=== PATIENT | female | born 1950 | race Caucasian/White ===

== ENCOUNTER 2019-08-17 11:15 | Outpatient (CLI) | payer MEDICARE, SELFPAY ==
--- NOTE | ~2019-08-17 | XR_ITS ---
EXAMINATION: XR knee RT 3V DATE: 08/17/2019 11:41 INDICATION: Right knee pain TECHNIQUE: Three views of the right knee were obtained. COMPARISON: None. FINDINGS: Alignment is normal. No fracture or osteochondral lesion. There is mild tricompartmental os teoarthritis characterized by tiny marginal osteophytes. No joint effusion/synovitis. Soft tissues a re unremarkable. IMPRESSION: 1. No acute osseous abnormality. Reviewed, dictated and finalized at location A.
== END 2019-08-17 11:16 | disposition home or self-care (01) ==
PROVIDERS: PCP Family Medicine; Visit Provider Family Medicine
DX: M25.561 Pain in right knee (principal)
CPT/HCPCS: 73562

== ENCOUNTER 2019-12-20 06:51 | Outpatient (NON) | payer MEDICARE, SELFPAY ==
[2019-12-20 18:18] LABS: SARS-CoV-2 RNA PCR Negative
== END 2019-12-20 06:52 ==
LOC: ANHCOVIDDT 06:52
PROVIDERS: PCP Family Medicine; Visit Provider Physician Assistant
DX: Z20.828 Contact with and (suspected) exposure to other viral communicable diseases (principal); R09.89 Other specified symptoms and signs involving the circulatory and respiratory systems
CPT/HCPCS: 87635; C9803; U0003

== ENCOUNTER 2020-08-09 07:18 | Outpatient (CLI) | payer MEDICARE, SELFPAY ==
--- NOTE | ~2020-08-09 | CT_ITS ---
EXAMINATION: CT abdomen pelvis wo con DATE: 08/09/2020 07:35 INDICATION: Abdomen pain. TECHNIQUE: Computed tomography (CT) of the abdomen and pelvis was performed without intravenous contr ast. The dose-length product was 555.40 mGy-cm. Automated exposure control and iterative reconstructi on technique were employed. COMPARISON: CT dated 11/06/2016. FINDINGS: Lung bases are unremarkable. Heart size normal. The liver, spleen, pancreas, adrenal glands and kidneys are unremarkable. Gallbladder is present. There is mild atherosclerosis of the aorta wit hout aneurysm. No abnormal pelvic masses or fluid collections. No obstruction. No free air or free fl uid. Moderate lumbar spondylosis. IMPRESSION: 1. No acute abdominal abnormality. Reviewed, dictated and finalized at location A.
== END 2020-08-09 07:19 | disposition home or self-care (01) ==
LOC: ANHIMG 07:20
PROVIDERS: PCP Family Medicine; Visit Provider Family Medicine
DX: R10.9 Unspecified abdominal pain (principal)
CPT/HCPCS: 74176

== ENCOUNTER 2020-09-17 08:41 | Outpatient (CLI) | payer MEDICARE, SELFPAY ==
--- NOTE | ~2020-09-17 | DEXA_ITS ---
Bone Density Report Name: Khadra Mclean Age: 69 Sex: Female Ethnicity: White Date of : 1950 Indication: postmenopausal; prior fracture; asthma or emphysema; hysterectomy; Referring Provider: Jeremy Oro Study: Bone densitometry was performed. Exam Date: September 17, 2020 Accession number: [id number] Bone Density: Region BMD T-score Z-score Classification AP Spine (L1, L2) 0.891 -0.8 1.0 Normal Femoral Neck (Left) 0.683 -1.5 0.2 Osteopenia Total Hip (Left) 0.854 -0.7 0.7 Normal Total Hip Bilateral Avg 0.839 -0.8 0.6 Normal Femoral Neck (Right) 0.677 -1.5 0.1 Osteopenia Total Hip (Right) 0.824 -1.0 0.4 Normal World Health Organization criteria for BMD impression classify patients as: Normal (T-score at or above -1.0), Osteopenia (T-score between -1.0 and -2.5), or Osteoporosis (T-score at or below -2.5). 10-year Fracture Risk(1): Major Osteoporotic Fracture 15% Hip Fracture 1.7% Reported Risk Factors: [place] (), Neck BMD=0.677, BMI=34.2, previous fracture (1) FRAX(R) Version 3.08. Fracture probability calculated for an untreated patient. Fracture probability may be lower if the patient has received treatment. Clinical Information Provided by Patient: Has had a low trauma fracture Has the following medical conditions: Asthma or Emphysema, Hysterectomy Patient maximum height was 60 Menopause Age: 47 No regular weight bearing exercise Drinks caffeinated beverages Onset of menses at age 18 Number of children 2 Impression: The patient has low bone mass, based on the Left Femoral Neck T-score. The patient has an estimated ten-year risk of hip fracture of 1.7% and an estimated ten-year risk of major fracture of 15%, based on the WHO FRAX algorithm. The patient has risk factors, including: previous fracture. Discussion: BONE DENSITY IS LOW AT ONE OR MORE SKELETAL SITES. This patient's lowest T-score is low at one or more skeletal sites. It meets the World Health Organization's (WHO) criteria for ?low bone mass? (T-score between -1.0 and -2.5). The patient's 10-year risk of fracture as calculated by FRAX is less than the threshold where pharmacological therapy is recommended by the National Osteoporosis Foundation (NOF). However, all treatment decisions require clinical judgment and consideration of individual patient factors, including patient preferences, comorbidities, previous drug use, risk factors not captured in the FRAX model (e.g., frailty, falls, vitamin D deficiency, increased bone turnover, interval significant decline in bone density) and possible under or overestimation of fracture risk by FRAX. The patient should follow a healthful lifestyle (good nutrition with adequate calcium and vitamin D, and appropriate weight-bearing exercise). Follow-Up: Consider repeating this micah
--- NOTE | ~2020-09-17 | MM_ITS ---
EXAMINATION: MM screening rosanna BI w judie HISTORY: Screening mammogram TECHNIQUE: Craniocaudal and mediolateral oblique 3-D tomosynthesis images were obtained and synthetic 2-D images were generated. CAD analysis was submitted and interpreted. COMPARISON: 12/13/2014 bilateral digital screening mammogram BREAST PARENCHYMAL COMPOSITION: There are scattered areas of fibroglandular density. FINDINGS: Stable circumscribed low-density benign probable intramammary lymph node in the posterior o uter mid right breast. There is no evidence of suspicious mass, calcification, or architectural disto rtion to suggest malignancy in either breast. There has been no suspicious interval change. IMPRESSION: 1. No mammographic evidence of malignancy. 2. Recommend routine screening mammography in one year. BI-RADS Category 2: Benign finding(s). Reviewed, dictated and finalized at location A.
== END 2020-09-17 08:42 | disposition home or self-care (01) ==
PROVIDERS: PCP Family Medicine; Visit Provider Family Medicine
DX: Z12.31 Encounter for screening mammogram for malignant neoplasm of breast (principal); Z78.0 Asymptomatic menopausal state; M85.851 Other specified disorders of bone density and structure, right thigh; M85.852 Other specified disorders of bone density and structure, left thigh
CPT/HCPCS: 77063; 77067; 77080

== ENCOUNTER 2021-05-06 10:23 | Outpatient (CLI) | payer MEDICARE, SELFPAY ==
--- NOTE | ~2021-05-06 | XR_ITS ---
EXAMINATION: XR lumbar spine 2-3V DATE: 05/06/2021 10:37 INDICATION: Dorsalgia, unspecified, right-sided. TECHNIQUE: 3 views of lumbar spine were obtained. COMPARISON: Lumbar spine radiographs 03/23/16 FINDINGS: There is 12 degrees dextroscoliosis of lumbar spine. There is mild chronic anterior wedging of L1 vertebral body. There is mildly decreased disc height at L1-L2 and L2-L3, severely decreased d isc height at L3-L4, and mildly decreased disc height at L4-L5 and L5-S1 with endplate remodeling. Th ere is severe facet joint osteoarthritis in lower lumbar spine. IMPRESSION: 1. Severe lumbar spondylosis, worsened from 03/23/2016. 2. Lumbar dextroscoliosis. Reviewed, dictated and finalized at location A.
--- NOTE | ~2021-05-06 | XR_ITS ---
EXAMINATION: XR thoracic spine 3V DATE: 05/06/2021 10:37 INDICATION: Dorsalgia, unspecified, right side. TECHNIQUE: 3 views of thoracic spine were obtained. COMPARISON: Chest CT 11/30/2018 FINDINGS: There is 7 degrees levocurvature of lower thoracic spine and 6 degrees dextrocurvature of u pper thoracic spine. There is mild chronic anterior wedging of T5 vertebral body. There is there is m ildly decreased disc height at most levels. There is moderately decreased disc height at T5-T6. There are endplate osteophytes at most levels. IMPRESSION: 1. Moderate thoracic spondylosis. Reviewed, dictated and finalized at location A.
== END 2021-05-06 10:24 | disposition home or self-care (01) ==
LOC: ANHIMG 10:24
PROVIDERS: PCP Family Medicine; Visit Provider Family Medicine
DX: M54.9 Dorsalgia, unspecified (principal); M47.814 Spondylosis without myelopathy or radiculopathy, thoracic region; M47.816 Spondylosis without myelopathy or radiculopathy, lumbar region; M41.86 Other forms of scoliosis, lumbar region
CPT/HCPCS: 72072; 72100

== ENCOUNTER 2021-07-01 08:21 | Outpatient (CLI) | payer MEDICARE, SELFPAY ==
[2021-07-01 09:07] LABS: Hemoglobin A1C 5.5 % (<5.7)
[2021-07-01 09:10] LABS: Complement C3 139 mg/dL (88-165)
[2021-07-01 09:44] LABS: Vitamin D 25 Hydroxy 36.1 ng/mL
[2021-07-03 12:28] LABS: SM Antibody <1.0; SM/RNP Antibody <1.0
[2021-07-03 12:29] LABS: SS-A <1.0; SS-B <1.0
[2021-07-03 21:19] LABS: Anti Cyclic Citrullinated Pept <16 Units (<20)
== END 2021-07-01 08:22 | disposition home or self-care (01) ==
PROVIDERS: PCP Family Medicine; Referring Provider Internal Medicine; Visit Provider Physician Assistant
DX: R73.01 Impaired fasting glucose (principal); R79.89 Other specified abnormal findings of blood chemistry; E03.8 Other specified hypothyroidism; M19.90 Unspecified osteoarthritis, unspecified site; R76.8 Other specified abnormal immunological findings in serum; Z51.81 Encounter for therapeutic drug level monitoring; Z79.899 Other long term (current) drug therapy
CPT/HCPCS: 36415; 82306; 83036; 84443; 85613; 85730; 86160; 86200; 86225; 86235

== ENCOUNTER 2021-07-02 07:55 | Outpatient (CLI) | payer MEDICARE, SELFPAY ==
[2021-07-07 07:41] LABS: Lupus dRVVT 1:1 Mix Interpreta Not Indicated; Lupus dRVVT Screen 40 sec (<=45); PTT-LA Screen 34 sec (<=40)
== END 2021-07-02 07:56 | disposition home or self-care (01) ==
PROVIDERS: PCP Family Medicine; Referring Provider Internal Medicine; Visit Provider Physician Assistant
DX: M19.90 Unspecified osteoarthritis, unspecified site (principal); R76.8 Other specified abnormal immunological findings in serum; R53.83 Other fatigue; R79.89 Other specified abnormal findings of blood chemistry
CPT/HCPCS: 36415; 85613; 85730

== ENCOUNTER 2021-08-26 14:42 | Outpatient (CLI) | payer MEDICARE, SELFPAY ==
--- NOTE | ~2021-08-26 | XR_ITS ---
XR ribs RT 2V w CXR 2V DATE: 08/26/2021 15:08 INDICATION: Right lower lateral rib pain TECHNIQUE: PA and lateral views. 4 right rib cage views COMPARISON: 12/10/2018 CT chest 04/30/2017 two-view chest FINDINGS: Normal heart size. No hilar or mediastinal enlargement. No pulmonary infiltrate or consolid ation, pleural effusion or pulmonary vascular congestion or pneumothorax. There is osteopenia. Mild thoracic scoliosis and degenerative spurring. Mild dextroscoliosis and mult ilevel degenerative disc disease of the lumbar spine. No right rib fracture or bone destruction is detected. IMPRESSION: No right rib fractures evident Osteopenia Scoliosis and degenerative change of the thoracic and lumbar spine No active cardiopulmonary disease Reviewed, dictated and finalized at location A.
== END 2021-08-26 14:43 | disposition home or self-care (01) ==
PROVIDERS: PCP Family Medicine; Visit Provider Physician Assistant
DX: M54.9 Dorsalgia, unspecified (principal); R07.81 Pleurodynia; M85.88 Other specified disorders of bone density and structure, other site; M41.86 Other forms of scoliosis, lumbar region
CPT/HCPCS: 71046; 71100

== ENCOUNTER 2022-08-10 01:23 | Day surgery (SDC) | payer MEDICARE, SELFPAY ==
[2022-07-31 08:59] VITALS: BMI 30.7
--- NOTE | 2022-08-07 15:27 | PM.HPGS ---
History of Present Illness History of Present Illness Consent: Risks, benefits, and alternatives have been discussed and questions answered. Patient agrees to proceed with procedure. Chief complaint: hx of colon polyps,neoplasm screening, Narrative: Khadra Mclean is a 71 year old female Referred for colon cancer screening. She has a history of polyps.She suffers from chronic constipation. A recent CT scan to investigate pelvic pain revealed a possible abnormality in the transverse colon. Review of Systems Review of Systems: All systems reviewed & are unremarkable except as noted in HPI and below PMFSH Past Medical History Medical History FITZ positive (~12/2020) Asthma Asthma exacerbation Degenerative joint disease (DJD) of lumbar spine Depression Fatigue Fatigue HLD (hyperlipidemia) Lateral abdominal pain Left-sided low back pain without sciatica Pneumonia of right lower lobe due to infectious organism TSH elevation Surgical History Surgical History H/O melanoma in situ History of incisional hernia repair Family History Family History Mother Family history of chronic obstructive pulmonary disease Other Cerebrovascular accident Family history of allergic disorder Family history of coronary artery disease Family history of malignant neoplasm Hypertension Social History Social History Smoking status: Never smoker Second hand tobacco smoke exposure: Yes Alcohol intake: current Alcohol use details: 3 drinks per month Substance use: never Substance use type: does not use Living arrangements: alone Occupation/Education: retired Gender identity (if verbalized by the patient): Female Sexual Orientation (if Verbalized by the Patient): Straight or Heterosexual Spiritual care concerns: No Meds Home Medications and Allergies Home Medications Medication Instructions Recorded Confirmed Type albuterol sulfate 90 mcg/actuation 1 - 2 puff inhalation Q4-6H PRN 12/09/20 08/10/22 Rx aerosol inhaler (Ventolin HFA) shortness of breath or wheezing #8.5 grams atorvastatin 10 mg tablet (Lipitor) 10 mg PO DAILY #90 tabs 04/28/21 08/10/22 Rx montelukast 10 mg tablet 10 mg PO DAILY #90 tabs 04/28/21 08/10/22 Rx inhalational spacing device #10 ea 09/01/21 07/31/22 Rx (Aerochamber MV spacer) pantoprazole 40 mg tablet,delayed 40 mg PO QAM #30 tabs 03/16/22 08/10/22 Rx release hydrochlorothiazide 25 mg tablet 25 mg PO DAILY #90 tabs 05/06/22 08/10/22 Rx trazodone 300 mg tablet 300 mg PO .qhs #90 tabs 06/11/22 08/10/22 Rx azelastine 137 mcg (0.1 %) nasal 1 spray intranasal Q12H PRN 07/31/22 08/10/22 History spray aerosol Allergy Symptoms citalopram 40 mg tablet 60 mg PO DAILY 07/31/22 08/10/22 History mometasone-formoterol HFA 100 2 puff inhalation Q12H PRN Dyspnea 07/31/22 08/10/22 History mcg-5 mcg/actuation aerosol inhaler (Dulera) Allergies Allergy/AdvReac Type Severity Reaction Status Date / Time No Known Allergies Allergy Verified 08/10/22 07:06 Exam Const: General: alert Orientation/consciousness: patient oriented x3 Resp: Auscultation: clear to auscultation bilaterally Cardio: Rhythm: regular rhythm GI: GI Palp: Yes Soft to palpation and No Tenderness to palpation present (GI) Neuro: General: patient oriented x3 Assessment and Plan Assessment and plan (1) Colon cancer screening: Code(s): Z12.11 - Encounter for screening for malignant neoplasm of colon Status: Acute Assessment and Plan: Colonoscopy with possible biopsy or polypectomy or cautery or injection of substances.
[2022-08-10 07:08] VITALS: BP 131/57; PULSE 65; RESP 16; TEMP 36.1; O2SAT 100
[2022-08-10] MEDS: LACTATED RINGERS 1,000 ML 150 ML IV CONT (07:14)
--- NOTE | 2022-08-10 08:10 | WPDANESEPPF ---
Anes - Initial Pre Proc Eval Procedure: Operation Date: 08/10/22 08:30 Proposed Procedures p Colonoscopy - Daniel Nelson MD Date/Time: 08/10/22 08:10 Surgeon: Daniel Nelson MD Pre Op Diagnosis: hx of colon polyps,neoplasm screening, Patient Data Age: 71 Gender: F Height: 1.52 m Weight: 71.8 kg Last Vital Signs Temp 97 F L 08/10/22 07:08 Pulse 65 08/10/22 07:08 Resp 16 08/10/22 07:08 BP 131/57 L 08/10/22 07:08 Pulse Ox 100 08/10/22 07:08 O2 Del Method Room Air 08/10/22 07:08 Allergies Allergy/AdvReac Type Severity Reaction Status Date / Time No Known Allergies Allergy Verified 08/10/22 07:06 Home Medications Medication Instructions Recorded Confirmed Type albuterol sulfate 90 mcg/actuation 1 - 2 puff inhalation Q4-6H PRN 12/09/20 08/10/22 Rx aerosol inhaler (Ventolin HFA) shortness of breath or wheezing #8.5 grams atorvastatin 10 mg tablet (Lipitor) 10 mg PO DAILY #90 tabs 04/28/21 08/10/22 Rx montelukast 10 mg tablet 10 mg PO DAILY #90 tabs 04/28/21 08/10/22 Rx inhalational spacing device #10 ea 09/01/21 07/31/22 Rx (Aerochamber MV spacer) pantoprazole 40 mg tablet,delayed 40 mg PO QAM #30 tabs 03/16/22 08/10/22 Rx release hydrochlorothiazide 25 mg tablet 25 mg PO DAILY #90 tabs 05/06/22 08/10/22 Rx trazodone 300 mg tablet 300 mg PO .qhs #90 tabs 06/11/22 08/10/22 Rx azelastine 137 mcg (0.1 %) nasal 1 spray intranasal Q12H PRN 07/31/22 08/10/22 History spray aerosol Allergy Symptoms citalopram 40 mg tablet 60 mg PO DAILY 07/31/22 08/10/22 History mometasone-formoterol HFA 100 2 puff inhalation Q12H PRN Dyspnea 07/31/22 08/10/22 History mcg-5 mcg/actuation aerosol inhaler (Dulera) Patient hx anesthesia problems: none Family hx anesthesia problems: none Results Review: All pre-operative results and documents have been reviewed as part of the pre-operative evaluation. [facility] Past Medical History Medical History FITZ positive (~12/2020) Asthma Asthma exacerbation Degenerative joint disease (DJD) of lumbar spine Depression Fatigue Fatigue HLD (hyperlipidemia) Lateral abdominal pain Left-sided low back pain without sciatica Pneumonia of right lower lobe due to infectious organism TSH elevation Surgical History Surgical History H/O melanoma in situ History of incisional hernia repair Family History Family History Mother Family history of chronic obstructive pulmonary disease Other Cerebrovascular accident Family history of allergic disorder Family history of coronary artery disease Family history of malignant neoplasm Hypertension Social History Social History Smoking status: Never smoker Second hand tobacco smoke exposure: Yes Alcohol intake: current Alcohol use details: 3 drinks per month Substance use: never Substance use type: does not use Living arrangements: alone Occupation/Education: retired Gender identity (if verbalized by the patient): Female Sexual Orientation (if Verbalized by the Patient): Straight or Heterosexual Spiritual care concerns: No Anes - Eval Final PreProcedure Day of Procedure 08/10/22 08:10 Patient weight: obese Heart: regular rate and rhythm Lungs: clear to auscultation Airway: Mallampati scale class II Neurological: alert and oriented Last oral intake: >/= 8 hours ASA classification: III Emergent: no Anesthetic plan: proceed Anesthesia type and monitoring: general GIVS and standard monitoring Results Review: All pre-operative results and documents have been reviewed as part of the pre-operative evaluation. Informed Consent: The patient's anesthetic plan and its attendant risks and benefits were discussed with the patient/family/POA. Questions were
[2022-08-10 08:46] VITALS: BP 104/57; PULSE 58; RESP 15; O2SAT 96
[2022-08-10 08:56] VITALS: BP 113/56; PULSE 58; RESP 18; O2SAT 98
[2022-08-10 09:12] VITALS: BP 115/50; PULSE 60; RESP 18; O2SAT 98
== END 2022-08-10 09:19 | disposition home or self-care (01) ==
PROVIDERS: PCP Family Medicine; Visit Provider Internal Medicine Gastroenterology
PROC: 0DJD8ZZ Inspection of Lower Intestinal Tract, Via Natural or Artificial Opening Endoscopic (ICD-10-PCS; CPT 45378; principal; 2022-08-10 08:30)
DX: Z12.11 Encounter for screening for malignant neoplasm of colon (principal); K64.8 Other hemorrhoids; K59.09 Other constipation; Z86.010 Personal history of colon polyps; J45.909 Unspecified asthma, uncomplicated; F32.A Depression, unspecified; E78.5 Hyperlipidemia, unspecified; Z79.51 Long term (current) use of inhaled steroids; E66.9 Obesity, unspecified; Z68.30 Body mass index [BMI] 30.0-30.9, adult
CPT/HCPCS: G0105; J2704; J7120

== ENCOUNTER 2023-04-22 07:52 | Outpatient (CLI) | payer MEDICARE, SELFPAY ==
--- NOTE | ~2023-04-22 | MM_ITS ---
EXAMINATION: MM screening rosanna BI w judie HISTORY: Screening TECHNIQUE: Craniocaudal and mediolateral oblique 3-D tomosynthesis images were obtained and synthetic 2-D images were generated. CAD analysis was submitted and interpreted. COMPARISON: Comparison to multiple prior studies sequentially, with oldest reviewed study dated 11/23. BREAST PARENCHYMAL COMPOSITION: Not dense: There are scattered areas of fibroglandular density. FINDINGS: There is no evidence of suspicious mass, calcification, or architectural distortion to sugg est malignancy in either breast. There has been no suspicious interval change. IMPRESSION: 1. No mammographic evidence of malignancy. 2. Recommend routine screening mammography in one year. BI-RADS Category 1: Negative Reviewed, dictated and finalized at location A. D [employer]
--- NOTE | ~2023-04-22 | DEXA_ITS ---
Bone Density Report Name: STEPHANIE QUINTERO Age: 72 Sex: Female Ethnicity: White Date of : 1950 Indication: postmenopausal; screening for osteoporosis; height loss; asthma or emphysema; hysterectomy; Referring Provider: WENCESLAO HERRING Study: Bone densitometry was performed. Exam Date: April 22, 2023 Accession number: [id number] Bone Density: Region BMD T-score Z-score Classification AP Spine(L1, L2) 0.888 -0.8 1.2 Normal Femoral Neck (Left) 0.688 -1.5 0.4 Osteopenia Total Hip (Left) 0.908 -0.3 1.3 Normal Femoral Neck (Right) 0.679 -1.5 0.3 Osteopenia Total Hip (Right) 0.884 -0.5 1.1 Normal Total Hip Mean 0.896 -0.4 1.2 Normal World Health Organization criteria for BMD impression classify patients as: Normal (T-score at or above -1.0), Osteopenia (T-score between -1.0 and -2.5), or Osteoporosis (T-score at or below -2.5). 10-year Fracture Risk(1): Major Osteoporotic Fracture 9.8% Hip Fracture 1.4% Reported Risk Factors: [place] (), Neck BMD=0.679, BMI=30.1 (1) FRAX(R) Version 3.08. Fracture probability calculated for an untreated patient. Fracture probability may be lower if the patient has received treatment. Previous Exams: Region Exam Age BMD T-score BMD Change BMD Change Date g/cm2 vs Baseline vs Previous AP Spine (L1-L2) 04/22/2023 72 0.888 -0.8 -0.003 (-0.3%) -0.003 (-0.3%) 09/17/2020 69 0.891 -0.8 Total Hip(Left) 04/22/2023 72 0.908 -0.3 0.055 (6.4%)* 0.055 (6.4%)* 09/17/2020 69 0.854 -0.7 Total Hip(Right) 04/22/2023 72 0.884 -0.5 0.060 (7.3%)* 0.060 (7.3%)* 09/17/2020 69 0.824 -1.0 *Denotes significance at 95% confidence level, LSC for AP Spine = 0.022 g/cm2, LSC for Total Hip = 0.027 g/cm2 Clinical Information Provided by Patient: Has the following medical conditions: Asthma or Emphysema, Hysterectomy, complete hysto Patient maximum height was 61 Menopause Age: 54 No regular weight bearing exercise Does not regularly consume dairy products Drinks caffeinated beverages Onset of menses at age 17 Number of children 2 Impression: The patient has low bone mass, based on the Left Femoral Neck T-score. The patient has an estimated ten-year risk of hip fracture of 1.4% and an estimated ten-year risk of major fracture of 9.8%, based on the WHO FRAX algorithm. No significant bone loss was observed. Discussion: BONE DENSITY IS LOW AT ONE OR MORE SKELETAL SITES. Th
== END 2023-04-22 07:53 | disposition home or self-care (01) ==
PROVIDERS: PCP Family Medicine; Visit Provider Physician Assistant
DX: Z12.31 Encounter for screening mammogram for malignant neoplasm of breast (principal); Z78.0 Asymptomatic menopausal state; M85.89 Other specified disorders of bone density and structure, multiple sites
CPT/HCPCS: 77063; 77067; 77080

== ENCOUNTER 2024-05-23 10:21 | Outpatient (CLI) | payer MEDICARE, SELFPAY ==
--- NOTE | ~2024-05-23 | XR_ITS ---
XR shoulder LT min 2V 05/23/2024 10:42 Indication: Left shoulder pain Procedure: 4 views left shoulder Comparison: No prior studies for comparison. Findings: There is mild polyarticular osteoarthritis. No fracture or traumatic malalignment. There is anatomic alignment. No soft tissue abnormality. Impression: 1: Mild polyarticular osteoarthritis. Reviewed, dictated and finalized at location A. Impression: 1: Mild polyarticular osteoarthritis.
--- OUTSIDE RECORDS SUMMARY | 2024-05-23 11:26 | XMS_ITS | Data Portability ---
Author Organization [facility], Main Office Address [address] [facility] [address] [address] Assessment No assessment recorded. Plan of Treatment Reminders Order Date Submit Date Provider Last Modified By Organization Details Last Modified Time Details Appointments None record ed. Lab None record ed. Referral None record ed. Procedures biopsy , skin (PROC) 024 06/18/19 24 [email or web address] Not available 4 09:56:06 biopsy , skin (PROC) 024 06/18/19 24 [email or web address] Not available 4 09:56:06 Surgeries None record ed. Imaging None record ed. Medication Orders None record ed. Patient TargetsNo targets recorded. Patient Instructions Encounter Date Encounter Id Patient Instructions Last Modified By Organization Details Last Modified Time 06/18/2023 [id number] Informed consent . betadine prep. 1% lidocaine with epinephrine. Shave biopsy from: nasal bridge, right of mid r lower lateral abdomen AlCL3 or cautery hemostasis. Aquaphor, bandage and wound care given. Will call pt with path. Cryo to left shoulder wart. [email or web address] Not available 06/18/2023 09:55:04 Reason for Referral None Reported. 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 578685147 Active 2022 Sher Hickman MD [address] [facility] [address], [place], [address], [facility] 3 10:08:07 Inflamed seborrheic keratosis 115455796 Active 2022 Sher Hickman MD [address] [facility] [address], [place], [address], [facility] 3 10:37:01 Neoplasm of uncertain behavior of skin 99418051 Active 2020 Sher Hickman MD [address] [facility] [address], [place], [address], [facility] 12:51:15 Actinic keratosis 374275465 Active 2020 Sher Hickman MD [address] [facility] [address], [place], [address], [facility] 12:51:17 Seborrheic keratosis 366017285 Active 2020 Sher Hickman MD [address] [facility] [address], [place], [address], [facility] 12:51:18 Solar lentiginosi s 416170715 Active 2020 Sehr Hickman MD [address] [facility] [address], [place], [address], [facility] 12:51:20 History of melanoma in situ of skin 1743944992972 Active 2020 Sher Hickman MD [address] [facility] [address], [place], [address], [facility] 12:51:22 Problem Notes None recorded. Medical Equipment None Reported. Allergies No known drug allergies Medications Name Sig Start Date Stop Date Status Note LastModified by Organization Details LastModified Time amoxicillin 500 mg capsule TAKE ONE CAPSULE BY MOUTH THREE TIMES DAILY UNTIL ALL TAKEN active Not Available Not Available No t Available metformin 500 mg tablet TAKE 1 TABLET BY MOUTH TWICE DAILY active Not Available Not Available No t Available prednisone 10 mg tablet TAKE 3 TABLETS BY MOUTH EVERY DAY FOR 3 DAYS THEN TAKE 2 TABLETS BY MOUTH EVERY DAY FOR 3 DAYS THEN TAKE 1 TABLET BY MOUTH EVERY DAY FOR 3 DAYS active Not Available Not Available No t Available citalopram 40 mg tablet TAKE 1 AND 1/2 TABLETS BY MOUTH DAILY active Not Available Not Available No t Available atorvastatin 10 mg tablet TAKE 1 TABLET BY MOUTH DAILY active Not Available Not Available Not Available azithromycin 250 mg tablet active Not Available Not Available Not Available fluconazole 150 mg tablet TAKE 1 TABLET BY MOUTH 1 TIME active Not Available Not Available No t Available benzonatate 200 mg capsule TAKE 1 CAPSULE BY MOUTH THREE TIMES DAILY NEEDED FOR COUGH active Not Available Not Available No t Available hydrocodone 5 mg-acetamino phen 325 mg tablet TAKE 1 TABLET BY MOUTH EVERY 4 TO 6 HOURS NEEDED FOR PAIN active Not Available Not Available No t Available naltrexone 50 mg tablet TAKE 1 TABLET BY MOUTH EVERY DAY active Not Available Not Available No t Available prednisone 20 mg tablet TAKE 2 TABLETS BY MOUTH EVERY DAY FOR 5 DAYS active Not Available Not Available No t Available clindamycin HCl 150 mg capsule TK 2 CAPSULES PO NOW THEN 1 C PO QID TAT active Not Available Not Available No t Available tramadol 50 mg tablet TAKE 1 TABLET BY MOUTH EVERY 6 HOURS NEEDED FOR PAIN active Not Available Not Available No t Available terbinafine HCl 250 mg tablet TAKE 1 TABLET BY MOUTH EVERY DAY active Not Available Not Available No t Available prednisolone acetate 1 % eye drops,suspen delmy INSTILL ONE DROP INTO LEFT EYE THREE TIMES DAILY STARTING AFTER SURGERY. USE UNTIL BOTTLE IS EMPTY active Not Available Not Available No t Available baclofen 10 mg tablet TAKE 1 TABLET BY MOUTH DAILY active Not Available Not Available Not Available benzonatate 100 mg capsule TAKE 1 CAPSULE BY MOUTH THREE TIMES DAILY NEEDED FOR COUGH active Not Available Not Available No t Available pantoprazole 40 mg tablet,delay ed release TAKE 1 TABLET BY MOUTH EVERY MORNING active Not Available Not Available No t Available brimonidine 0.2 % eye drops INT 1 GTT INTO OD BID active Not Available Not Available Not Available trazodone 300 mg tablet TAKE 1 TABLET BY MOUTH EVERY NIGHT AT BEDTIME active Not Available Not Available No t Available gabapentin 300 mg capsule TAKE 1 CAPSULE BY MOUTH EVERY NIGHT AT BEDTIME active Not Available Not Available No t Available Personal Best Full Range device USE DIRECTED active Not Available Not Available No t Available montelukast 10 mg tablet TAKE 1 TABLET BY MOUTH DAILY active Not Available Not Available Not Available hydrochlorot hiazide 25 mg tablet TAKE 1 TABLET BY MOUTH DAILY active Not Available Not Available Not Available azelastine 137 mcg (0.1 %) nasal spray USE 1 SPRAY IN EACH NOSTRIL EVERY 12 HOURS active Not Available Not Available No t Available methylpredni solone 4 mg tablets in a dose pack FOLLOW PACKAGE DIRECTIONS active Not Available Not Available N ot Available albuterol sulfate HFA 90 mcg/actuatio n aerosol inhaler INHALE 1 TO 2 PUFFS BY MOUTH EVERY 4 TO 6 HOURS NEEDED FOR SHORTNESS OF BREATH OR WHEEZING active Not Available Not Available Not Available fluticasone propionate 50 mcg/actuatio n nasal spray,suspen delmy active Not Available Not Available Not Available amoxicillin 875 mg-potassium clavulanate 125 mg tablet TAKE 1 TABLET BY MOUTH TWICE DAILY FOR 10 DAYS active Not Available Not Available No t Available cyclobenzapr ine 5 mg tablet TAKE 1 TABLET BY MOUTH THREE TIMES DAILY NEEDED FOR MUSCLE SPASM active Not Available Not Available No t Available Besivance 0.6 % eye drops,suspen delmy ISNTILL 1 DROP INTO RIGHT EYE TID. USE THREE DAYS BEFORE SURGERY UNTIL BOTTLE IS EMPTY active Not Available Not Available No t Available Dulera 100 mcg-5 mcg/actuatio n HFA aerosol inhaler active Not Available Not Available Not Available Prolensa 0.07 % eye drops active Not Available Not Available Not Available ID NOW COVID-19 Test Kit TEST DIRECTED TODAY active Not Available Not Available No t Available Vitals None Recorded Social History None recorded. Functional Status None recorded. Mental Status None recorded. Family History Nothing Reported. Medical History No medical history recorded. Gynecological HistoryNo gynecological history recorded. Obstetrics History GPAL:G 0 P 0 0 0 0 Past Encounters Encounter ID Performer Location Encounter Start Date Encounter Closed Date Diagnosis/Indication Diagnosis SNOMED-CT Code Diagnosis ICD10 Code Diagnosis Note [id number] Sher Hickman MD Main Office [address] [phone] 07/17/2020 09:25:21 07/17/2020 09:46:40 Neoplasm of uncertain behavior of skin 01384537 D48.5 Seborrheic keratosis 394 494515 L82.1 right ear [id number] Sher Hickman MD Main Office [address] [place] [address] 06/18/2023 09:29:55 06/18/2023 09:56:58 Neoplasm of uncertain behavior of skin 50202574 D48.5 Health Concerns Section Related Observation LastModified by Organization Detai ls LastModified Time None Recorded Concern Status LastModified by Organization Details LastModified Time None Recorded Advance Directives Directive None Recorded Payers None recorded. Notes Date Note Type Note Provider Name and Address Organization Details Recorded Time 06/18/2023 text/html Bxs of the nose and r lower lateral abomen black thin papuleAlso c/o irritating growth of th l shoulder x recent.exam shows a small wart in a SK. Sher Hickman MD [address] [facility] [address], [place], [address], [facility] 06/18/2023 09:56:32 OBGyn Episode No OBEpisode recorded.
--- OUTSIDE RECORDS SUMMARY | 2024-05-23 11:26 | XMS_ITS ---
Author Organization [facility] Address [address] [place] [address] Care Team Providers Care Health Tech Name Role Phone Fabrice John Unavailable [phone] REASON FOR VISIT [facility], adequate appetite suppression lasting 4-5 days, no side effects noted, no new concerns, Desired weight loss: 30 lbs, -0.4 lbs since last visit, -8.1 lbs total, No history MTC or MEN2 or pancreatitis, Concerned about future DM and OA, Previously on Tirzepatide x 1 year, lost 40 lbs, last dose 10/2023, Medications Medication SIG (Take, Route, Frequency, Duration) Notes Start Date End Date Status Atorvastatin Calcium 10 MG 1 tablet Oral ly Once a day Active Pantoprazole Sodium 20 MG 1 tablet 1/2 t o 1 hour before morning meal Orally Once a day Active hydroCHLOROthiazide 25 MG 1 tablet in th e morning Orally Once a day Active Montelukast Sodium 10 MG 1 tablet Orally Once a day Active Citalopram Hydrobromide 40 MG 0.5 tablet Orally Once a day Active Pulmicort 1 MG/2ML 1 mL Inhalation Twic e a day Active traZODone HCl 100 MG 1 tablet at bedtime Orally Once a day Active Vital Signs Height 59.9 in 05/08/2024 Weight 154.0 lbs 05/08/2024 BMI 30.17 kg/m2 05/08/2024 Encounters Encounter Location Date Provider Diagnosis [facility] [place] ([address]) [address] [place] [id number] 05/08/2024 John Avina Chronic fatigue, unspecified R53.82 ; Abnormal weight gain R63.5 ; Other fatigue R53.83 and Other malaise R53.81 Assessments Encounter Date Diagnosis (ICD Code) Assessment Notes Treatment Notes Treatment Clinical Notes Section Notes 05/08/2024 Chronic fatigue, unspecified (ICD-10 - R53.82) 05/08/2024 Abnormal weight gain (ICD-10 - R63.5) 05/08/2024 Other fatigue (ICD-10 - R53.83) 05/08/2024 Other malaise (ICD-10 - R53.81) Plan Of Treatment Next Appt Details Follow Up: 1 Week, Reason: G LP-1 Agonist Administration Provider Name:John Avina , 05/29/2024 08:15:00 AM, [address]22 [address], [address], [address], Procedure Notes * Category Sub-Category Detail Notes [facility] tirzepatide Indication: weig ht loss Concentration: 10 mg/mL Volume Administered: 0.45 mL Dose Administered: 4.5 mg Route: SQ Location: Right abdomen Frequency: weekly Lot Number/Expiration: Medication Source: Nutraceutical Comp ounding Adverse Reaction: None Progress Notes * Blanca MCLEANOB:1950 ( 73 yo F)Acc No.[id number]:05/08/2024 Weight Loss Patient: Khadra ODEN Provider: Leticia Avina MD :1950 A ge:73 Y S ex:Female Date:05/08/2024 Address:[address] [place] [address] Subjective: * Chief Complaints: * 1 . [facility], adequate appetite suppression lasting 4-5 days, no side effects noted, no new concerns. 2. Desired weight loss: 30 lbs, -0.4 lbs since last visit, -8.1 lbs total. 3. No history MTC or MEN2 or pancreatitis. 4. Concerned about future DM and OA. 5. Previously on Tirzepatide x 1 year, lost 40 lbs, last dose 10/2023,. * HPI: * [facility]: The risks, benefits & alternatives were discussed regarding available treatment options. A treatment path was determined after reviewing the patients medical records, our verbal discussions and via joint decision-making Consents for our planned treatments were signed and are on file. She has a history of HLD, GERD and edema. She denies any known history of DM2. She was previously on semaglutide for 6-8 months and lost 40 pounds. Her last dose of semaglutide was 2.4 mg in October 2023. * Medical History: * Medications: T aking Pulmicort 1 MG/2ML Suspension 1 mL Inhalation Twice a day , Taking traZODone HCl 100 MG Tablet 1 tablet at bedtime Orally Once a day , Taking Montelukast Sodium 10 MG Tablet 1 tablet Orally Once a day , Taking Citalopram Hydrobromide 40 MG Tablet 0.5 tablet Orally Once a day , Taking Atorvastatin Calcium 10 MG Tablet 1 tablet Orally Once a day , Taking Pantoprazole Sodium 20 MG Tablet Delayed Release 1 tablet 1/2 to 1 hour before morning meal Orally Once a day , Taking hydroCHLOROthiazide 25 MG Tablet 1 tablet in the morning Orally Once a day Objective: * Vitals: H t: 59.9 in, Wt: 154.0 lbs, BMI:30.17Index. Assessment: * Assessment: 1. A bnormal weight gain - R63.5 (Primary) 2 . C hronic fatigue, unspecified - R53.82 3 . O ther fatigue - R53.83 4 . O ther malaise - R53.81 Plan: * Treatment: * Procedures: [facility]: Weight Management: tirzepatide I ndication w eight loss C oncentration 1 0 mg/mL V olume Administered 0 .45 mL D ose Administered 4 .5 mg R oute S Q L ocation R ight abdomen F requency w eekly L ot Number/Expiration 0 M edication Source A H Nutraceutical Compounding A dverse Reaction N one * Follow Up: 1 Week (Reason: GLP-1 Agonist Administration) * Billing Information: * Visit Code: * Procedure Codes: 48002 [facility] - Weekly (tirzepatide) (0.5-5 mg) Tier 1. * Electronic signature of Shiela Avina MD, FAAAAI on 05/23/2024 at 11:26 AM CDT Sign off status: Pending * Provider: Leticia Avina MD Date: 0 05/08/2024 Generated for Sony tapia/Meghna/Ocitting on: 0 05/23/2024 11:26 AM CDT History and Physical Notes * HPI (History of Present Illness) Category Sub-Category Detail Notes Category Not es *Wellness & Aesthetics The r isks, benefits & alternatives were discussed regarding available treatment options. A treatment path was determined after reviewing the patients medical records, our verbal discussions and via joint decision-making Consents for our planned treatments were signed and are on file. She has a history of HLD, GERD and edema. She denies any known history of DM2. She was previously on semaglutide for 6-8 months and lost 40 pounds. Her last dose of semaglutide was 2.4 mg in October 2023.
--- OUTSIDE RECORDS SUMMARY | 2024-05-23 11:26 | XMS_ITS | Continuity of Care Document ---
Author Organization [facility] Address [address] [place] [address] Phone Care Team Providers Care Accounting Administrative Assistant Name Role Phone Iván Alejandra MD Unavailable Unavailable Allergies, Adverse Reactions, Alerts Substance Reaction Status Criticality No Known Allergies Active No Inform ation Medications Medication Instructions Dosage Effective Dates (start - stop) Status Comments hydrochlorothiazide 25 mg tablet 1 QD - Active cyclobenzaprine 10 mg tablet TAKE 1 TABLET PO QHS PRN - Active citalopram 40 mg tablet take 1. 5 table t by oral route every day - Active trazodone 300 mg tablet take 1 tablet (300MG) by oral route 1 q hs - Active Advance Directives Directive Yes / No Effective Date File Name No Information Encounters Encounter Description Practice Location Reason(s) For Visit Diagnoses Date Provider Providers Copied on Encounter [facility], [address], [place], [place], [address] , [place] tel: [phone] [facility] No Information 0 Justyn Minor. [address] [facility], [facility] [address], [place], [place], [address], [place]. [phone] [facility], [address], [place], [place], [address] , [place] tel: [phone] [facility] No Information 201 6 Paul Gaviria. [address] [facility], [address], [place], [place], [address], [place]. tel:[phone] [facility], [address], [place], [place], [address] , tel: [phone] [facility] No Information 5 Paul Gaviria. [address], [address], [place], [place], [address], [place]. tel:[phone] [facility], [address], [place], [place], [address] , [place] tel: [phone] [facility] No Information 5 Paul Gaviria. [address], [address], [place], [place], [address], [place]. tel:[phone] [facility], [address], [place], [place], [address] , tel: [phone] [facility] No Information 4 Paul Gaviria. [address], [address], [place], [place], [address], [place]. tel:[phone] [facility], [address], [place], [place], [address] , [place] tel: [phone] [facility] Hematuria 4 Paul Gaviria. [address], [address], [place], [place], [address], [place]. tel:[phone] Referring Provider: Khadra Vu, [address], [place], [address] . tel:[phone] [facility], [address], [place], [place], [address] , [place] tel: [phone] [facility] LLQ mass (chief complaint) LLQ abdominal mass 4 David Naomi. [facility] [facility], [facility] [address], [place], [address]. tel:[phone] Referring Provider: Khadra Vu, [address], [place], [address] . tel:[phone] [facility], [address], [place], [place], [address] , tel: [phone] [facility] cough (chief complaint) BronchitisNasal congestion 4 Grazyna Waller. [address], [place], [place], [address]. tel:[phone] Referring Provider: Khadra Vu, [address], [place], [address] . tel:[phone] [facility], [address], [place], [place], [address] , tel:[phone] [facility] fatigue (chief complaint) Screening for depressionMajor depressive affective disorder, recurrent episode, moderate degreeFatigue / MalaiseHTNHypoth yroidism 4 Paul Gaviria. [address], [address], [place], [place], [address], [place]. tel:[phone] Referring Provider: [address], [place], [address] . tel:[phone] [facility], [address], [place], [place], [address] , [place] tel:[phone] [facility] Unspecified essential hypertensionMajo r depressive affective disorder, recurrent episode, moderate degreeUnspecifie d acquired hypothyroidismOt her Malaise And FatigueRoutine general medical examination at a health care facilityFunction al dyspneaOTHER ABNORMAL GLUCOSE 3 Paul Gaviria. [address], [address], [place], [place], [address], [place]. tel:[phone] Referring Provider: [address], [place], [address] . tel:[phone] [facility], [address], [place], [place], [address] , [place] tel:[phone] [facility] Dyspnea 2 Paul Gaviria. [address], [address], [place], [place], [address], [place]. tel:[phone] Referring Provider: [address], [place], [address] . tel:[phone] [facility], [address], [place], [place], [address] , [place] tel: [phone] [facility] Acquired hypothyroidism 0-201 2 Paul Gaviria. [address], [address], [place], [place], [address], [place]. tel: [phone] [facility], [address], [place], [place], [address] , tel: [phone] [facility] Other Malaise And Fatigue 201 [address] Paul Gaviria. [address], [address], [place], [place], [address], [place]. tel: [phone] Referring Provider: Khadra Vu, [address] [facility], [place], [address] . tel:[phone] [facility], [address], [place], [place], [address] , tel: [phone] [facility] ACUTE URI NOS 5-201 0 Conversion Doctor. [facility] [place], [address], [place]. [facility], [address], [place], [place], [address] , tel: [phone] [facility] DEPRESSIVE DISORDER NEC 8200 9 Conversion Doctor. [facility] [place], [address], . [facility], [address], [place], [place], [address] , tel: [phone] [facility] ROUTINE MEDICAL EXAMHYPERTENSION NOS 8-200 9 Paul Gaviria. [address], [address], [place], [place], [address], [place]. tel: [phone] [facility], [address], [place], [place], [address] , tel: [phone] [facility] HYPERLIPIDEMIA NEC/NOSRECURR DEPR PSYCHOS-MOD [address] 9 Paul Gaviria. [address], [address], [place], [place], [address], [place]. tel: [phone] [facility], [address], [place], [place], [address] , tel: [phone] [facility] ATTN DEFIC NONHYPERACTBENIG N HYPERTENSION 200 9 Conversion Doctor. [address] [facility], [place], [address], . Mevvy RingMD, [address], [place], [place], [address] , tel: [phone] [facility] MALAISE AND FATIGUE NECLONG-TERM USE MEDS NEC 200 0 Beebe Anila. [address] [facility], [place], [place], [address]. tel:[phone] [facility], [address], [place], [place], [address] , tel: [phone] [facility] SOMAT DYSFUNC LUMBAR REGSPRAIN LUMBAR REGION 9 Calabrese John. [address] [facility], [place], [place], [address], . tel:[phone] Family History Family Member Type Diagnosis Age At Onset Father Problem (finding) Mother Problem (finding) stroke 75 Father Problem (finding) malignant neop lasm of lung (Cause Of ) Payers Payer name Insurance type Covered libertarian ID Authoriza tion(s) MEDICARE MB [id number] Social History Type Description Quantity Date Captured Comments Alcohol Use Details Unknown Caffeine Use Details Unknown Tobacco Use Status No Information Smoking Status No Information Sex Female Chief Complaint And Reason For Visit No Information Reason For Referral Reason For Referral No Information History Of Present Illness Encounter Date Complaint History Of Prese nt Illness LLQ mass Pt with hx previ ous abx surgeries- hysterectomy and ex lap. c/o mass for the past few months on LLQ, notices only when standing. she is concerned its getting bigger. mild discomfort. no stool changes, abd pain, n/v/f/c. she is a nervous wreck over this and has not been sleeping d/t anxiety of it. cough Additional infor mation: 62 y/o states she has been sick with hacky cough/chills/feels wheeze. Sxs started wednesday. No fever.. No nausea/vomiting/diarrhea. Pt took mucinex DM.. helps a bit... fatigue The patient pres ents with difficulty concentrating and fatigue. The fatigue is associated with generalized weakness, lightheadedness, loss of interest and malaise. The patient denies any change in appetite, chills, constipation, diaphoresis, flank pain, hematemesis, hematochezia, jaundice, melena, pallor, pruritus and weight gain. Additional information: seems worse than usual for her. several viruses this winter. feels some tingling in her head, occ spinning. had switch of psychiatry, insurance. had been advised to stop her celexa but when switched to the new antidepressant felt worse so back on it. sleeping 10 hours/noc, 2-4 day. not tearful.. Functional Status Date Functional Assessmen t No Information Instructions Date Instruction Additional Infor jordan Us abd LLQ to eval.. suspicious for herniano pain currentlyd/w pt warning signs if occur to call office Related to LLQ abdominal mass Bronchitis/nasal congestion. Immunizations Assessments Type Assessment Date No Information Patient Care Teams Name Effective Dates (start - stop) Status Members No Information
--- OUTSIDE RECORDS SUMMARY | 2024-05-23 11:27 | XMS_ITS | Clinical Summary ---
Author Organization [facility] [address] Address [address] [place] [address] Care Team Providers Care Metal Tester Name Role Phone Jeremy Oro MD Primary Care Provider Allergies No known active allergies Medications citalopram (CeleXA) 40 mg tablet Take 40 mg by mouth daily. 5 06/24/2017 Active albuterol sulfate 90 mcg/actuation aerosol powdr breath activated Inhale 2 puffs as needed. Active atorvastatin (LIPITOR) 10 mg tablet Take 10 mg by mouth daily. Active traZODone (DESYREL) 300 mg tablet Take 300 mg by mouth nightly. Active pantoprazole DR (PROTONIX) 40 mg EC tablet Take 40 mg by mouth daily. Active mometasone 200 mcg/actuation HFA aerosol inhaler Inhale 400 mcg 2 (two) times a day. Active hydroCHLOROthia zide (HYDRODIURIL) 25 mg tablet Take 25 mg by mouth daily. Active oxyCODONE-aceta minophen (PERCOCET) 7.5-325 mg per tabletIndicatio ns:Pain Take 1-2 tablets every 4 hours as needed for pain 60 tablet 07/23/2017 Active Active Problems Problem Noted Date Diagnosed Date Closed displaced fracture of head of left radius 07/08/2017 Surgical History Surgery Date Site/Laterality Comments HYSTERECTOMY HERNIA REPAIR 02/23/2016 - 02/21/2017 x9 areas APPENDECTOMY Medical History Medical History Date Comments Asthma Sleep apnea Myocardial infarction (HCC) poss ible, to have ECHO after surgery complete. Fracture of radial head, left, closed Hypertension Pt denies having HTN. 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 Gender Identity Not on file Sexual Orientation Not on file Obstetrics History Last Filed Vital Signs Vital Sign Reading Time Taken Comments Blood Pressure 159/68 07/15/2017 2:35 PM CDT Pulse 79 07/15/2017 2:35 PM CDT Temperature 37 C (98.6 F) 07/15/2017 1:25 PM CDT Respiratory Rate 10 07/15/2017 2:35 PM CDT Oxygen Saturation 96% 07/15/2017 2:35 PM CDT Inhaled Oxygen Concentration - - Weight 81.6 kg (180 lb) 10/28/2017 8:32 AM CDT Height 152.4 cm (5') 10/28/2017 8:32 AM CDT Body Mass Index 35.15 10/28/2017 8:32 AM CDT Plan of Treatment Health Maintenance Due Date Last Done Comments Breast Cancer Screening-Mammogram 1950 Colon Cancer Screening-Colonoscopy 1950 Depression Screening 1950 Fall Risk Assessment 1950 Hepatitis C Screening 1950 Osteoporosis Screening-Bone Density Scan 1950 DTaP/Tdap/Td Vaccine (1 - Tdap) 09/28/1963 Hepatitis B Screening 1970 Zoster Vaccine (2 of 3) 12/30/2016 11/04/2016 Well Visit 65+ 2017 Pneumococcal vaccine 65+ (3 of 3 - PCV20 or PCV21) 12/09/2021 12/09/2016, 12/01/2015 Covid-19 Vaccine ( - 2023-2 5 season) 2023 11/16/2022, 01/22/2022, 10/13/2021, Additional history exists Influenza Vaccine (#1) 2023 , 01/22/2022, 10/30/2020, Additional history exists Medical Devices Implanted Type Area Hog Trader Device Identifier Shelf Expiration Date Model / Serial / Lot Head Radial 12mm 22mm Explor Elbow Mdlr - [id number] Implanted:Qty: 1 on 07/15/2017 by Jerome Ramires MD at [facility] Left: [employer] 06/21/2027 [id number] / / [id number] Stem Radial 22mm 5mm Explor Elbow lr - [id number] Implanted:Qty: 1 on 07/15/2017 by Jerome Ramires MD at [facility] Left: [employer] 06/22/[id number] / / [id number] Insurance MEDICARE Advance Directives For more information, please contact: [phone] Documents on File Type Date Recorded Patient Draw Furnace Tender Expl anation ADVANCE DIRECTIVE 06/24/2017 8:09 PM ADVANCE DIRECTIVE 06/24/2017 Advance Di rective Checklist Care Teams Metal Tester Relationship Specialty Start Date End Date Jeremy Oro MD [address] [facility] [address] [place] [address] PCP - General Family Medicine 05/11/17
--- OUTSIDE RECORDS SUMMARY | 2024-05-23 11:27 | XMS_ITS | Encounter Summary ---
Author Organization [facility] Address [address] [facility] [place] [address] Care Team Providers Care Glost Kiln Placer Name Role Phone Josh Munson MD Unavailable Encounter Details Date Type Department Care Team (Late st Contact Info) Description 07/19/2020 Lab Requisition [facility] [address] [facility], [place] [id number] Sher Hickman MD [address] [facility] [address] [place] [address] Social History Tobacco Use Types Packs/Day Years Used Date Smoking Tobacco: Never Smokeless Tobacco: Never Alcohol Use Standard Drinks/Week Comments No 0 (1 standard drink = 0.6 oz pur e alcohol) Sex and Gender Information Value Date Recorded Sex Assigned at Not on file Gender Identity Not on file Sexual Orientation Not on file documented as of this encounter Plan of Treatment Not on file documented as of this encounter Procedures Procedure Name Priority Date/Time Associated Diagnosis Comments DERMATOPATHOLOGY Routine 07/17/2020 12:0 0 AM CDT documented in this encounter Results * DERMATOPATHOLOGY (07/17/2020 12:00 AM CDT) Case Report Dermatopathology Report Case: [id number] Authorizing Provider: Sher Hickman MD Collected: 07/17/2020 12:00 AM Ordering Location: [facility] Received: 07/19/2020 10:23 AM Pathologist: Bryan Gonzalez MD Specimen: Skin, left ala nose 1:22 PM CDT DERMATOPATHOLOGY LABORATORY Final Diagnosis Specimen A. 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 1:22 PM CDT DERMATOPATHOLOGY LABORATORY Gross Description Specimen A: Received is one formalin filled container labeled with the patient's name and designated left ala nose. The specimen consists of a shave biopsy measuring [id number]. Jar 0. 1:22 PM CDT DERMATOPATHOLOGY LABORATORY Microscopic Description Specimen A. SKIN, left ala nose: There are prominent sebaceous gland lobules surrounding a dilated hair follicle. Additional deeper sections were obtained and reviewed. 1:22 PM CDT DERMATOPATHOLOGY LABORATORY Disclaimer An external and internal positive and negative controls are appropriate for the histochemical, immunohistochemical and immunofluorescence stain(s) in this case (if any), except where stated explicitly. The performance characteristics of the stain(s) cited in this report were developed and its performance characteristic determined by the Dermatopathology Laboratory at [facility], directed by Dr. Garth Gonzalez. These tests need not be, and therefore are not, approved by the [place] Food and Drug Administration. The tests are used for clinical purposes. Billing Codes Specimen Charges Stain Charges 06784 1 1 1:22 PM CDT DERMATOPATHOLOGY LABORATORY Embedded Images 1:22 PM CDT DERMATOPATHOLOGY LABORATORY Pathology/Cytolog y TISSUE SPECIMEN FROM SKIN / Unknown 07/17/2020 07/19/2020 10:23 AM CDT Sher Hickman MD LAB - PATHOLOGY/CYTO LOGY ORDERABLES DERMATOPATHOLOGY LABORATORY [facility] - Department of Dermatology [address], [address] [phone] documented in this encounter Visit Diagnoses Not on filedocumented in this encounter Care Teams Glost Kiln Placer Relationship Specialty Start Date End Date Josh Munson MD Pulmonary Disease 10/27/11 documented as of this encounter
--- OUTSIDE RECORDS SUMMARY | 2024-05-23 11:27 | XMS_ITS | CONTINUITY OF CARE DOCUMENT ---
Author Name dora john Address Unknown Organization [facility] Address [address] [place] [address] [address] [place] [address] Phone [phone] Care Team Providers Care Laborer Beam House Name Role Phone Chen HURST, Jorge Adams Unavailable [phone] KHADRA GAMBLE MD Unavailable KHADRA GAMBLE MD Unavailable [phone] INSURANCE PROVIDERS Payer name Policy type / Coverage type [place] red democr[place] MEDICARE PART B Medicare [id number]
--- OUTSIDE RECORDS SUMMARY | 2024-05-23 11:27 | XMS_ITS ---
Author Organization [facility] Address [address] [place] [address] Care Team Providers Care Distribution Center Manager Name Role Phone Fabrice John Unavailable [phone] REASON FOR VISIT [facility] Weight Loss, adequate appetite suppression lasting 4-5 days, no side effects noted, no new concerns, Desired weight loss: 30 lbs, -1.2 lbs since last visit, - 7.7 lbs total, No history MTC or MEN2 or pancreatitis, Concerned about future DM and OA, Previously on Tirzepatide x 1 year, lost 40 lbs, last dose 10/2023, Medications Medication SIG (Take, Route, Frequency, Duration) Notes Start Date End Date Status Pulmicort 1 MG/2ML 1 mL Inhalation Twic e a day Active traZODone HCl 100 MG 1 tablet at bedtime Orally Once a day Active Montelukast Sodium 10 MG 1 tablet Orally Once a day Active Citalopram Hydrobromide 40 MG 0.5 tablet Orally Once a day Active hydroCHLOROthiazide 25 MG 1 tablet in th e morning Orally Once a day Active Atorvastatin Calcium 10 MG 1 tablet Oral ly Once a day Active Pantoprazole Sodium 20 MG 1 tablet 1/2 t o 1 hour before morning meal Orally Once a day Active Vital Signs Height 59.9 in 05/01/2024 Weight 155.6 lbs 05/01/2024 BMI 30.49 kg/m2 05/01/2024 Encounters Encounter Location Date Provider Diagnosis [facility] [place] ([address]) [address] [place] [address] 05/01/2024 John Avina Chronic fatigue, unspecified R53.82 ; Abnormal weight gain R63.5 ; Other fatigue R53.83 and Other malaise R53.81 Assessments Encounter Date Diagnosis (ICD Code) Assessment Notes Treatment Notes Treatment Clinical Notes Section Notes 05/01/2024 Chronic fatigue, unspecified (ICD-10 - R53.82) 05/01/2024 Abnormal weight gain (ICD-10 - R63.5) 05/01/2024 Other fatigue (ICD-10 - R53.83) 05/01/2024 Other malaise (ICD-10 - R53.81) Plan Of Treatment Next Appt Details Follow Up: 1 Week, Reason: G LP-1 Agonist Administration Provider Name:John Aivna , 05/29/2024 08:15:00 AM, [address], [address], [address], Procedure Notes * Category Sub-Category Detail Notes [facility] tirzepatide Indication: weig ht loss Concentration: 10 mg/mL Volume Administered: 0.45 mL Dose Administered: 4.5 mg Route: SQ Location: Left abdomen Frequency: weekly Lot Number/Expiration: Medication Source: Nutraceutical Comp ounding Adverse Reaction: None Progress Notes * Blanca MCLEANOB:1950 ( 73 yo F)Acc No.[id number]:05/01/2024 Weight Loss Patient: Khadra ODEN Provider: Leticia Avina MD :1950 A ge:73 Y S ex:Female Date:05/01/2024 Address:[address] [place] [address] Subjective: * Chief Complaints: * 1 . [facility] Weight Loss, adequate appetite suppression lasting 4-5 days, no side effects noted, no new concerns. 2. Desired weight loss: 30 lbs, -1.2 lbs since last visit, - 7.7 lbs total. 3. No history MTC or [...] * Vitals: H t: 59.9 in, Wt: 155.6 lbs, BMI:30.49Index. Assessment: * Assessment: 1. A bnormal weight [...] mg R oute S Q L ocation L eft abdomen F requency w eekly L ot Number/Expiration 0 M edication Source A H Nutraceutical Compounding A dverse Reaction N one * Follow Up: 1 Week (Reason: GLP-1 Agonist Administration) * Billing Information: * Visit Code: * Procedure Codes: 96920 [facility] - Weekly (tirzepatide) (0.5-5 mg) Tier 1. * Electronic signature of Shiela Avina MD, FAAAAI on 05/23/2024 at 11:26 AM CDT Sign off status: Pending * Provider: Leticia Avina MD Date: 0 05/01/2024 Generated for Sony tapia/Meghna/Ocitting on: 0 05/23/2024 [...]
--- OUTSIDE RECORDS SUMMARY | 2024-05-23 11:27 | XMS_ITS | Clinical Summary ---
Author Organization [facility] Address [address] [place] [address] Care Team Providers Care Fire Extinguisher Inspector Name Role Phone Jeremy Oro MD Primary Care Provider [phone] Allergies No known active allergies Medications traZODone (DESYREL) 50 mg tablet Take 50 mg by mouth daily at bedtime. Active hydroCHLOROthiazi de 25 mg tablet Take 25 mg by mouth daily. Active citalopram (CeleXA) 40 mg tablet Take 40 mg by mouth daily. Active atorvastatin (LIPITOR) 10 mg tablet Take 10 mg by mouth daily with supper. Active pantoprazole (PROTONIX) 40 mg Tablet, Delayed Release (E.C.) Take 40 mg by mouth daily. Active budesonide (PULMICORT RESPULE) 0.25 mg/2 mL Suspension for Nebulization Take by inhalation 2 times daily. Active albuterol HFA 90 mcg inhaler Take 2 Puffs by inhalation every 6 hours as needed for Shortness of Breath. Active methylPREDNISolon e (MEDROL DOSPACK) 4 mg Tablets, Dose Pack Take as instructed. 1 Package 9 Active Social History Tobacco Use Types Packs/Day Years Used Date Smoking Tobacco: Never Smokeless Tobacco: Never Comments Unknown Sex and Gender Information Value Date Recorded Sex Assigned at Not on file Legal Sex Female 9:43 PM CDT Gender Identity Not on file Sexual Orientation Not on file Last Filed Vital Signs Vital Sign Reading Time Taken Comments Blood Pressure 135/67 05/14/2018 10:34 AM CDT Pulse 67 05/14/2018 10:34 AM CDT Temperature 36.7 C (98.1 F) 05/14/2018 10:34 AM CDT Respiratory Rate 16 05/14/2018 10:34 AM CDT Oxygen Saturation 97% 05/14/2018 10:34 AM CDT Inhaled Oxygen Concentration - - Weight 81.6 kg (180 lb) 05/14/2018 10:34 AM CDT Height 152.4 cm (5') 05/14/2018 10:34 AM CDT Body Mass Index 35.15 05/14/2018 10:34 AM CDT Plan of Treatment Health Maintenance Due Date Last Done Comments DTAP/TDAP/TD VACCINES (1 - Tdap) 09/28/1971 COLORECTAL SCREENING 1997 Colorectal Cancer Screening 1997 FIT-DNA Q 3 years 1997 FIT/FOBT Q 1 year 1997 Flex Sig/CT Colonography Q 5 years 1997 PNEUMOCOCCAL VACCINE 50+ YEARS (1 of 1 - PCV) 09/28/19 03 ZOSTER VACCINE (1 of 2) 2002 BREAST CANCER SCREENING 12/14/2015 12/13/2014 OSTEOPOROSIS SCREENING 2017 INFLUENZA VACCINE (#1) 2023 RSV VACCINE (60+ or ) (1 - 1-dose 75+ series) 09/28/2027 Insurance Care Teams Fire Extinguisher Inspector Relationship Specialty Start Date End Date Jeremy Oro MD [address] [facility] [address] [place] [address] PCP - General Family Practice 05/14/18
--- OUTSIDE RECORDS SUMMARY | 2024-05-23 11:27 | XMS_ITS | Referral Summary ---
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 Gender Identity Not on file Sexual Orientation [...] 10/28/2017 8:32 AM CDT Plan of Treatment Not on file Medical Devices Implanted Type Area Station Attendant Device Identifier Shelf Expiration Date Model / Serial / Lot Head Radial 12mm 22mm Explor Elbow Mdlr - [id number] Implanted:Qty: 1 on 07/15/2017 by Jerome Ramires MD at [facility] Left: [employer] 06/21/2027 [id number] / / [id number] Stem Radial 22mm 5mm Explor Elbow lr - [id number] Implanted:Qty: 1 on 07/15/2017 by Jerome Ramires MD at [facility] Left: [employer] 06/22/202260 / / [id number] Insurance MEDICARE [facility] MEDICARE [facility] MED[facility] Address: [facility] [address] [place] [phone] Advance Directives For more information, please contact: [phone] Documents on File Type Date Recorded Patient Hog Ringer Expl anation ADVANCE DIRECTIVE 06/24/2017 8:09 PM ADVANCE DIRECTIVE 06/24/2017 Advance Di rective Checklist Care Teams Application Integrator Relationship Specialty Start Date End Date Jeremy Oro MD [address] [place] [address] PCP - General Family Medicine 05/11/17
--- OUTSIDE RECORDS SUMMARY | 2024-05-23 11:27 | XMS_ITS ---
Author Organization [facility] Address [address] [place] [address] Care Team Providers Care Underground Mining Section Foreman Name Role Phone Fabrice John Rider [phone] REASON FOR VISIT [facility] Weight Loss, adequate appetite suppression lasting 4-5 days, no side effects noted, no new concerns, Desired weight loss: 30 lbs, -0.4 lbs since last visit, - 6.5 lbs total, No history MTC or MEN2 or pancreatitis, Concerned about future DM and OA, Previously on Tirzepatide x 1 year, lost 40 lbs, last dose 10/2023, Medications Medication SIG (Take, Route, Frequency, Duration) Notes Start Date End Date Status Citalopram Hydrobromide 40 MG 0.5 tablet Orally Once a day Active Atorvastatin Calcium 10 MG 1 tablet Oral ly Once a day Active Montelukast Sodium 10 MG 1 tablet Orally Once a day Active Pantoprazole Sodium 20 MG 1 tablet 1/2 t o 1 hour before morning meal Orally Once a day Active hydroCHLOROthiazide 25 MG 1 tablet in th e morning Orally Once a day Active Pulmicort 1 MG/2ML 1 mL Inhalation Tw e a day Active traZODone HCl 100 MG 1 tablet at bedtime Orally Once a day Active Vital Signs Height 59.9 in 04/24/2024 Weight 156.8 lbs 04/24/2024 BMI 30.72 kg/m2 04/24/2024 Encounters Encounter Location Date Provider Diagnosis [facility] [place] ([address]) [address] [place] [phone] 04/24/2024 John Avina Chronic fatigue, unspecified R53.82 ; Abnormal weight gain R63.5 ; Other fatigue R53.83 and Other malaise R53.81 Assessments Encounter Date Diagnosis (ICD Code) Assessment Notes Treatment Notes Treatment Clinical Notes Section Notes 04/24/2024 Chronic fatigue, unspecified (ICD-10 - R53.82) 04/24/2024 Abnormal weight gain (ICD-10 - R63.5) 04/24/2024 Other fatigue (ICD-10 - R53.83) 04/24/2024 Other malaise (ICD-10 - R53.81) Plan Of Treatment Next Appt Details Follow Up: 1 Week, Reason: G LP-1 Agonist Administration Provider Name:John Avina , 05/29/2024 08:15:00 AM, [address], [address], [address], Procedure Notes * Category Sub-Category Detail Notes [facility] tirzepatide Indication: weig ht loss Concentration: 10 mg/mL Volume Administered: 0.45 mL Dose Administered: 4.5 mg Route: SQ Location: Right abdomen Frequency: weekly Lot Number/Expiration: Medication Source: Nutraceutical Comp ounding Adverse Reaction: None Progress Notes * Blanca MCLEANOB:1950 ( 73 yo F)Acc No.[id number]:04/24/2024 Weight Loss Patient: Khadra ODEN Provider: Leticia Avina MD :1950 A ge:73 Y S ex:Female Date:04/24/2024 Address:[address] [place] [address] Subjective: * Chief Complaints: * 1 . [facility] Weight Loss, adequate appetite suppression lasting 4-5 days, no side effects noted, no new concerns. 2. Desired weight loss: 30 lbs, -0.4 lbs since last visit, - 6.5 lbs total. 3. No history MTC or [...] * Vitals: H t: 59.9 in, Wt: 156.8 lbs, BMI:30.72Index. Assessment: * Assessment: 1. A bnormal weight [...] Information: * Visit Code: * Procedure Codes: 76931 [facility] - Weekly (tirzepatide) (0.5-5 mg) Tier 1. * Electronic signature of Shiela Avina MD, FAAAAI on 05/23/2024 at 11:26 AM CDT Sign off status: Pending * Provider: Leticia Avina MD Date: 0 04/24/2024 Generated for Sony tapia/Meghna/Ocitting on: 0 05/23/2024 [...]
--- OUTSIDE RECORDS SUMMARY | 2024-05-23 11:27 | XMS_ITS | Patient Health Record ---
Author Organization [facility] Address [address] [place] [address] Care Team Providers Care Airport Attendant Name Role Phone John Avina Unavailable [phone] Reason For Referral No Information Medications Medication SIG (Take, Route, Frequency, Duration) [...] 0.5 tablet Orally Once a day Active Problems Problem Type SNOMED Code ICD Code Onset Dates Problem Status W/U Status Risk Notes Problem Chronic fatigue syndrome (disorder) (65356943) Chronic fatigue, unspecified (R53.82) Active confirmed Vital Signs Temperature 98.1 degrees Fahrenheit 03/27/2024 Respiratory Rate 18 /min 03/27/2024 Oximetry 96 % 03/27/2024 Blood pressure diastolic 79 mm Hg 03/27/2024 Height 59.9 in 05/08/2024 Blood pressure systolic 143 mm Hg 03/27/2024 Weight 154.0 lbs 05/08/2024 BMI 30.17 kg/m2 05/08/2024 Encounters Encounter Location Date Provider Diagnosis [facility] [place] ([address]) [address] [place] [address] 03/27/2024 John Avina Chronic fatigue, unspecified R53.82 ; Abnormal weight gain R63.5 ; Other fatigue R53.83 and Other malaise R53.81 [facility] [place] ([address]) [address] [place] [address] 04/03/2024 John Avina Chronic fatigue, unspecified R53.82 ; Abnormal weight gain R63.5 ; Other fatigue R53.83 and Other malaise R53.81 [facility] ([address]) [address] [place] [address] 04/10/2024 Johnyohannes Avina Chronic fatigue, unspecified R53.82 ; Abnormal weight gain R63.5 ; Other fatigue R53.83 and Other malaise R53.81 [facility] ([address]) [address] [place] [address] 04/17/2024 John Avina Chronic fatigue, unspecified R53.82 ; Abnormal weight gain R63.5 ; Other fatigue R53.83 and Other malaise R53.81 [facility] ([address]) [address] [place] [address] 04/24/2024 John Avina Chronic fatigue, unspecified R53.82 ; Abnormal weight gain R63.5 ; Other fatigue R53.83 and Other malaise R53.81 [facility] ([address]) [address] [place] [address] 05/01/2024 John Avina Chronic fatigue, unspecified R53.82 ; Abnormal weight gain R63.5 ; Other fatigue R53.83 and Other malaise R53.81 [facility] ([address]) [address] [place] [address] 05/08/2024 Johnyohannes Avina Chronic fatigue, unspecified R53.82 ; Abnormal weight gain R63.5 ; Other fatigue R53.83 and Other malaise R53.81 Assessments Encounter Date Diagnosis (ICD Code) Assessment Notes Treatment Notes Treatment Clinical Notes Section Notes 03/27/2024 Chronic fatigue, unspecified (ICD-10 - R53.82) 03/27/2024 Abnormal weight gain (ICD-10 - R63.5) 04/03/2024 Chronic fatigue, unspecified (ICD-10 - R53.82) 04/03/2024 Abnormal weight gain (ICD-10 - R63.5) 04/10/2024 Chronic fatigue, unspecified (ICD-10 - R53.82) 04/10/2024 Abnormal weight gain (ICD-10 - R63.5) 04/17/2024 Chronic fatigue, unspecified (ICD-10 - R53.82) 04/17/2024 Abnormal weight gain (ICD-10 - R63.5) 04/24/2024 Chronic fatigue, unspecified (ICD-10 - R53.82) 04/24/2024 Abnormal weight gain (ICD-10 - R63.5) 05/01/2024 Chronic fatigue, unspecified (ICD-10 - R53.82) 05/01/2024 Abnormal weight gain (ICD-10 - R63.5) 05/08/2024 Chronic fatigue, unspecified (ICD-10 - R53.82) 05/08/2024 Abnormal weight gain (ICD-10 - R63.5) 05/08/2024 Other fatigue (ICD-10 - R53.83) 05/01/2024 Other fatigue (ICD-10 - R53.83) 04/24/2024 Other fatigue (ICD-10 - R53.83) 04/17/2024 Other fatigue (ICD-10 - R53.83) 04/10/2024 Other fatigue (ICD-10 - R53.83) 04/03/2024 Other fatigue (ICD-10 - R53.83) 03/27/2024 Other fatigue (ICD-10 - R53.83) 04/03/2024 Other malaise (ICD-10 - R53.81) 04/10/2024 Other malaise (ICD-10 - R53.81) 04/17/2024 Other malaise (ICD-10 - R53.81) 04/24/2024 Other malaise (ICD-10 - R53.81) 05/01/2024 Other malaise (ICD-10 - R53.81) 05/08/2024 Other malaise (ICD-10 - R53.81) 03/27/2024 Other malaise (ICD-10 - R53.81) Plan Of Treatment Next Appt Details Provider Name:John Avina , 05/29/2024 08:15:00 AM, [address], [place] [address], [place], [address], Medical (General) History Medical History History ICD Code Hyperlipidemia GERD
--- OUTSIDE RECORDS SUMMARY | 2024-05-23 11:27 | XMS_ITS | Clinical Summary ---
Author Organization [facility] Address [address] [facility] [place] [address] Care Team Providers Care Per Diem Name Role Phone Josh Munson MD Unavailable Source Comments [facility],non-owned Affiliates and Associated Physician Practices is amultiple site organization consisting of ambulatory clinics and hospital sitesin [place] and [place]. This disclosure is being madepursuant to the Care Everywhere program and may not contain all information available regarding this patient. Last updated 17.[facility] Allergies No known active allergies Medications * Be aware that medications may not be up to date on this document. Alwaysverify current medications with the patient. Medication Sig Dispensed Refills Start Date End Date Status hydrochlorothiazide (HYDRODIURIL) 25 MG tablet Take 25 mg by mouth once daily. Active trazodone (DESYREL) 300 MG Take 300 mg by mouth at bedtime. Active Citalopram Hydrobromide (CELEXA PO) Take 60 mg by mouth once daily. Active Levothyroxine Sodium (LEVOXYL PO) Take 1 Tab by mouth once daily. Active albuterol HFA (VENTOLIN HFA) 8 gram inhaler Inhale 2 Puffs by mouth every 6 hours as needed. 1 Inhaler 3 10/27/2011 Active fluticasone propionate (FLONASE) 50 MCG/ACT nasal spray Chancellor 2 Sprays into each nostril once daily. 1 Inhaler 3 10/27/2011 Active Active Problems Problem Noted Date Diagnosed Date Ankle pain 08/23/2009 Family History Medical History Relation Name Comments CAD (Coronary Artery Disease) Maternal Grandmother Cancer Maternal Grandmother lung Seizures Mother Stroke Mother Asthma Paternal Grandmother Relation Name Status Comments Maternal Grandmother Mother Paternal Grandmother Social History Tobacco Use Types Packs/Day Years [...] Sign Reading Time Taken Comments Blood Pressure 116/60 11/04/2011 3:29 PM CDT Pulse 78 11/04/2011 3:29 PM CDT Temperature 36.6 C (97.9 F) 11/04/2011 3:29 PM CDT Respiratory Rate 16 11/04/2011 3:29 PM CDT Oxygen Saturation 98% 11/04/2011 3:29 PM CDT room air Inhaled Oxygen Concentration - - Weight 77.1 kg (170 lb) 11/04/2011 3:29 PM CDT Height 152.4 cm (5') 11/04/2011 3:29 PM CDT Body Mass Index 33.2 11/04/2011 3:29 PM CDT Plan of Treatment Health Maintenance Due Date Last Done Comments BONE DENSITY TESTING 1950 COLOGUARD (AGES 45-75) - COL ON CA SCREENING 1950 COLON MONITORING 1950 COLONOSCOPY - COLON CA SCREENING 1950 CT COLONOGRAPHY - COLON CA SCREENING 1950 Colorectal Cancer Screening 1950 FIT - COLON CA SCREENING 1950 FLEX SIG - COLON CA SCREENING 1950 LIPID TESTING 1950 MAMMOGRAM 1950 MEDICARE AWV 12 MONTHS 1950 HEPATITIS C SCREENING 09/23/1970 DTAP/TDAP/TD VACCINES (1 - Tdap) 09/28/1971 PNEUMOCOCCAL VACCINE 50+ (1 of 1 - PCV) 2002 ZOSTER VACCINE (1 of 2) 2002 COVID-19 VACCINE ( - 2023-2 5 season) 2023 INFLUENZA VACCINE (#1) 2023 DEPRESSION SCREENING 02/23/2024 Respiratory Syncytial Virus (RSV) Vaccine Pt: or over 60 yrs (1 - 1-dose 75+ series) 09/28/2027 HEPATITIS B VACCINE Aged Out No longe r eligible based on patient's age to complete this topic HIB VACCINE Aged Out No longer eligi ble based on patient's age to complete this topic HPV VACCINE Aged Out No longer eligi ble based on patient's age to complete this topic MENINGOCOCCAL (Group B) VACC INE SHARED DECISION-MAKING Aged Out No longer eligibl e based on patient's age to complete this topic MENINGOCOCCAL GROUPS A/C/Y/W VACCINE Aged Out No longer eligible b ased on patient's age to complete this topic Care Teams Per Diem Relationship Specialty Start Date End Date Josh Munson MD Pulmonary Disease 10/27/11
--- OUTSIDE RECORDS SUMMARY | 2024-05-23 11:27 | XMS_ITS | Encounter Summary ---
Author Organization [facility] Address [address] [facility] [place] [address] Care Team Providers Care Medical Affairs Manager Name Role Phone Josh Munson MD Unavailable Encounter Details Date Type Department Care Team (Late st Contact Info) Description 06/21/2023 Lab Requisition [facility] - DermPath Lab [address] [facility], [place] [phone] Sher Hickman MD [address] [facility] [address] [place] [address] Social History Tobacco Use Types [...] on file documented as of this encounter Visit Diagnoses Not on filedocumented in this encounter Care Teams Medical Affairs Manager Relationship Specialty Start Date End Date Josh Munson MD Pulmonary Disease 10/27/11 documented as of this encounter
--- OUTSIDE RECORDS SUMMARY | 2024-05-23 11:27 | XMS_ITS | Encounter Summary ---
Author Organization [facility] Address [address] [place] [address] Care Team Providers Care Sheet Metal Pattern Cutter Name Role Phone Josh Munson MD Unavailable Encounter Details Date Type Department Care Team (Late st Contact Info) Description 06/21/2023 Lab Requisition [facility] - DermPath Lab [address] [facility], [place] [phone] Sher Hickman MD [address] [facility] [address] [place] [address] Social History Tobacco Use Types [...] Priority Date/Time Associated Diagnosis Comments DERMATOPATHOLOGY Routine 06/18/2023 12:0 0 AM CDT documented in this encounter Results * DERMATOPATHOLOGY (06/18/2023 12:00 AM CDT) Case Report Dermatopathology Report Case: [id number] Authorizing Provider: Sher Hickman MD Collected: 06/18/2023 12:00 AM Ordering Location: [facility] - Received: 06/21/2023 11:47 AM DermPath Lab Pathologist: Viviana Mcguire MD Specimens: A) - Skin, Nasal bridge right of mid B) - Skin, abdomen right lower 5:04 PM [facility] DERMATOPATHOLOGY [facility]ORATORY Final Diagnosis Specimen A. SKIN, Nasal bridge right of mid: SQUAMOUS CELL CARCINOMA, ACANTHOLYTIC TYPE (C44.321) (see microscopic description) Specimen B. SKIN, abdomen right lower: LENTIGINOUS MELANOCYTIC NEVUS, COMPOUND TYPE, IRRITATED (D22.5) 5:04 PM [facility] DERMATOPATHOLOGY [facility]ORATORY Clinical History A: BCC. B: NEVUS, SK, ATYPICAL,MELANOCYTI C LESION. 5:04 PM T DERMATOPATHOLOGY LABORATORY Gross Description Specimen A: Received is one formalin filled container labeled with the patient's name and designated Nasal bridge right of mid. The specimen consists of a shave biopsy measuring 4x3x1 mm. Jar 0. Specimen B: Received is one formalin filled container labeled with the patient's name and designated abdomen right lower. The specimen consists of a shave biopsy measuring 8x6x1 mm. Jar 0. 5:04 PM [facility] DERMATOPATHOLOGY [facility]ORATORY Microscopic Description Specimen A. SKIN, Nasal bridge right of mid: Sections show skin with irregularly shaped nests of keratinocytes with evidence of cornification. In some nests, there is loss of cohesion between the neoplastic cells, as well as individual dyskeratotic cells that lack intercellular bridges. P63 is positive in the atypical cells. Additional deeper sections were obtained and reviewed. Specimen B. SKIN, abdomen right lower: This is a compound nevus. There is melanin pigment within the stratum corneum. There is a lentiginous proliferation of melanocytes between nests of cells along the dermal-epidermal junction, highlighted by MART-1/Melan-A immunohistochemical staining. There is underlying fibroplasia of the papillary dermis. The intradermal component is bland appearance and matures with depth. Original and deeper sections were reviewed. (Compound Vinay's Nevus) 5:04 PM T DERMATOPATHOLOGY LABORATORY Disclaimer An external and internal positive and negative controls are appropriate for the histochemical, immunohistochemical and immunofluorescence stain(s) in this case (if any), except where stated explicitly. The performance characteristics of the stain(s) cited in this report were developed and its performance characteristic determined by the Dermatopathology Laboratory at [facility], directed by Dr. Garth Gonzalez. These tests need not be, and therefore are not, approved by the [place] Food and Drug Administration. The tests are used for clinical purposes. Billing Codes Specimen Charges Stain Charges 74015 06285 1 1 76393 53658 1 1 4 5:04 PM CDT DERMATOPATHOLOGY LABORATORY Embedded Images 5:04 PM CDT DERMATOPATHOLOGY LABORATORY Pathology/Cytology TISSUE SPECIMEN FROM SKIN / Unknown 06/18/2023 06/21/2023 11:47 AM CDT Miscellaneous samples (specimen) TISSUE SPECIMEN FROM SKIN / Unknown 06/18/2023 06/21/2023 11:47 AM CDT Sher Hickman MD LAB - PATHOLOGY/CYTO LOGY ORDERABLES DERMATOPATHOLOGY LABORATORY [facility] - Department of Dermatology [facility] Medicine [address] [place] [address], [address] [phone] documented in this encounter Visit Diagnoses Not on filedocumented in this encounter Care Teams Sheet Metal Pattern Cutter Relationship Specialty Start Date End Date Josh Munson MD Pulmonary Disease 10/27/11 documented as of this encounter
== END 2024-05-23 10:22 | disposition home or self-care (01) ==
PROVIDERS: PCP Family Medicine; Visit Provider Family Medicine
DX: M19.012 Primary osteoarthritis, left shoulder (principal); M25.512 Pain in left shoulder
CPT/HCPCS: 73030

== ENCOUNTER 2024-06-14 09:04 | Outpatient (CLI) | payer MEDICARE, SELFPAY ==
--- NOTE | ~2024-06-14 | XR_ITS ---
Left Knee Technique: AP and lateral views were obtained. Clinical History: Pain Findings: No fracture or dislocation is seen. Osseous alignment is anatomic. Joint spaces are preserv ed without degenerative or erosive change. Soft tissues are unremarkable. No joint effusion is seen. Impression: Unremarkable left knee radiographs. Reviewed, dictated and finalized at location . Impression: Unremarkable left knee radiographs.
--- OUTSIDE RECORDS SUMMARY | 2024-06-14 09:51 | XMS_ITS ---
Author Organization [facility] ([address]) Address [address] [place] [address] Care Team Providers Care Automotive Glass Technician Name Role Phone John Avina [phone] REASON FOR VISIT [facility], [...] 05/08/2024 Encounters Encounter Location Date Provider Diagnosis [facility] ([address]) [address] [place] [address] 05/08/2024 John Avina Chronic fatigue, unspecified R53.82 [...] LP-1 Agonist Administration Provider Name:John Avina , 06/26/2024 08:15:00 AM, [address], [address], [address], Procedure Notes * Category Sub-Category Detail Notes [facility] tirzepatide Indication: weig ht loss Concentration: 10 mg/mL Volume Administered: 0.45 mL Dose Administered: 4.5 mg Route: SQ Location: Right abdomen Frequency: weekly Lot Number/Expiration: Medication Source: Nutraceutical Comp ounding Adverse Reaction: None Progress Notes * Anastasia MCLEANBillOB:1950 ( 73 yo F)Acc No.[id number]:05/08/2024 Weight Loss Patient: Khadra ODEN Provider: Leticia Avina MD :1950 A ge:73 Y S ex:Female Date:05/08/2024 Address:[address] [place] [address] Subjective: * Chief Complaints: * 1 . [...] Information: * Visit Code: * Procedure Codes: 86477 [facility] - Weekly (tirzepatide) (0.5-5 mg) Tier 1. * Electronic signature of Shiela Avina MD, FAAAAI on 06/14/2024 at 09:50 AM CDT Sign off status: Pending * Provider: Leticia Avina MD Date: 0 05/08/2024 Generated for Sony tapia/Meghna/Ocitting on: 0 06/14/2024 09:50 AM CDT History and Physical Notes * [...]
--- OUTSIDE RECORDS SUMMARY | 2024-06-14 09:51 | XMS_ITS ---
Author Organization [facility] ([address]) Address [address] [place] [address] Care Team Providers Care Skin Diving Teacher Name Role Phone John Avina [phone] REASON FOR VISIT [facility], [...] 05/01/2024 Encounters Encounter Location Date Provider Diagnosis [facility] ([address]) [address] [place] [address] 05/01/2024 John Avina Chronic fatigue, unspecified R53.82 [...] , 06/26/2024 08:15:00 AM, [address], [address], [address], Procedure Notes * Category Sub-Category Detail Notes [facility]: Weight Management tirzepatide Indication: weig ht loss Concentration: 10 mg/mL Volume Administered: 0.45 mL Dose Administered: 4.5 mg Route: SQ Location: Left abdomen Frequency: weekly Lot Number/Expiration: Medication Source: Nutraceutical Comp ounding Adverse Reaction: None Progress Notes * Anastasia MCLEANBillOB:1950 ( 73 yo F)Acc No.[id number]:05/01/2024 Weight Loss Patient: Khadra ODEN Provider: Leticia Avina MD :1950 A ge:73 Y S ex:Female Date:05/01/2024 Address:[address] [place] [address] Subjective: * Chief Complaints: * 1 . [...] Information: * Visit Code: * Procedure Codes: 16429 [facility] - Weekly (tirzepatide) (0.5-5 mg) Tier 1. * Electronic signature of Shiela Avina MD, FAAAAI on 06/14/2024 at 09:51 AM CDT Sign off status: Pending * Provider: Leticia Avina MD Date: 0 05/01/2024 Generated for Sony tapia/Meghna/Ocitting on: 0 06/14/2024 09:51 AM CDT History and Physical Notes * [...]
--- OUTSIDE RECORDS SUMMARY | 2024-06-14 09:51 | XMS_ITS | Data Portability ---
Author Organization [facility] Derm[facility], Main Office Address [address] [facility] [address] [address] Assessment No assessment recorded. Plan of Treatment [...] By Organization Details Last Modified Time 06/18/2023 [id number] Informed consent . betadine prep. 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 Active 2022 Sher Hickman MD [address], [place], [address], [facility] 3 10:08:07 Inflamed seborrheic keratosis 439140413 Active 2022 Sher Hickman MD [address], [place], [address], [facility] 3 10:37:01 Neoplasm of uncertain behavior of skin 07589979 Active 2020 Sher Hickman MD [address] [facility] [address], [place], [address], [facility] 12:51:15 Actinic keratosis 429246315 Active 2020 Sher Hickman MD [address] [facility] [address], [place], [address], [facility] 12:51:17 Seborrheic keratosis 316843244 Active 2020 Sher Hickman MD [address] [facility] [address], [place], [address], [facility] 12:51:18 Solar lentiginosi s 893692866 Active 2020 Sher Hickman MD [address] [facility] [address], [place], [address], [facility] 12:51:20 History of melanoma in situ of skin 5572885348529 Active 2020 Sher Hickman MD [address] [facility] [address], [place], [address], [facility] 12:51:22 Problem Notes None recorded. Medical [...] SNOMED-CT Code Diagnosis ICD10 Code Diagnosis Note [id number] Sher Hickman MD Main Office [address] [place] [address] 07/17/2020 09:25:21 07/17/2020 09:46:40 Neoplasm of uncertain behavior of skin 96132983 D48.5 Seborrheic keratosis 394 110066 L82.1 right ear 79160 Sher Hickman MD Main Office [address] [place] [address] 06/18/2023 09:29:55 06/18/2023 09:56:58 Neoplasm of uncertain behavior of skin 18745929 D48.5 Health Concerns Section Related Observation LastModified [...] in a SK. Sher Hickman MD [address] [facility] [address], [place], [address], [facility] 06/18/2023 09:56:32 OBGyn Episode No OBEpisode recorded.
--- OUTSIDE RECORDS SUMMARY | 2024-06-14 09:52 | XMS_ITS | Patient Health Record ---
Author Organization [facility] [employer] [place] ([address]) Address [address] [place] [address] Care Team Providers Care Printed Circuit Board Preassembler Name Role Phone John Avina [phone] Reason For Referral No Information Medications Medication SIG (Take, Route, Frequency, Duration) Notes Start Date End Date Status Montelukast Sodium 10 MG 1 tablet Orally Once a day Active Citalopram Hydrobromide 40 MG 0.5 tablet Orally Once a day Active Atorvastatin Calcium 10 MG 1 tablet Oral ly Once a day Active Pantoprazole Sodium 20 MG 1 tablet 1/2 t o 1 hour before morning meal Orally Once a day Active Pulmicort 1 MG/2ML 1 mL Inhalation Tw e a day Active traZODone HCl 100 MG 1 tablet at bedtime Orally Once a day Active hydroCHLOROthiazide 25 MG 1 tablet in morning Orally Once a day Active Problems Problem Type SNOMED Code ICD Code Onset Dates Problem Status W/U Status Risk Notes Problem Chronic fatigue syndrome (disorder) (36049091) Chronic fatigue, unspecified (R53.82) Active confirmed Vital Signs Temperature 98.1 degrees Fahrenheit 03/27/2024 Respiratory Rate 18 /min 03/27/2024 Oximetry 96 % 03/27/2024 Blood pressure diastolic 79 mm Hg 03/27/2024 Height 59.9 in 05/29/2024 Blood pressure systolic 143 mm Hg 03/27/2024 Weight 156.0 lbs 05/29/2024 BMI 30.57 kg/m2 05/29/2024 Encounters Encounter Location Date Provider Diagnosis [facility] [employer] [facility] ([address]) [address] [place] [address] 03/27/2024 John Avina Chronic fatigue, unspecified R53.82 ; Abnormal weight gain R63.5 ; Other fatigue R53.83 and Other malaise R53.81 [facility] [place] ([address]) [address] [place] [address] 04/03/2024 John Win Chronic fatigue, unspecified R53.82 ; Abnormal weight gain R63.5 ; Other fatigue R53.83 and Other malaise R53.81 [facility] [place] ([address]) [address] [place] [address] 04/10/2024 John Win Chronic fatigue, unspecified R53.82 ; Abnormal weight gain R63.5 ; Other fatigue R53.83 and Other malaise R53.81 [facility] ([address]) [address] [place] [address] 04/17/2024 John Win Chronic fatigue, unspecified R53.82 ; Abnormal weight gain R63.5 ; Other fatigue R53.83 and Other malaise R53.81 [facility] [place] ([address]) [address] [place] [address] 04/24/2024 John Win Chronic fatigue, unspecified R53.82 ; Abnormal weight gain R63.5 ; Other fatigue R53.83 and Other malaise R53.81 [facility] [place] ([address]) [address] [place] [address] 05/01/2024 John Win Chronic fatigue, unspecified R53.82 ; Abnormal weight gain R63.5 ; Other fatigue R53.83 and Other malaise R53.81 [facility] [place] ([address]) [address] [place] [address] 05/08/2024 John Win Chronic fatigue, unspecified R53.82 ; Abnormal weight gain R63.5 ; Other fatigue R53.83 and Other malaise R53.81 [facility] ([address]) [address] [place] [address] 05/29/2024 John Win Chronic fatigue, unspecified R53.82 ; Abnormal weight [...] 05/08/2024 Abnormal weight gain (ICD-10 - R63.5) 05/29/2024 Chronic fatigue, unspecified (ICD-10 - R53.82) 05/29/2024 Abnormal weight gain (ICD-10 - R63.5) 05/29/2024 Other fatigue (ICD-10 - R53.83) 05/08/2024 Other fatigue (ICD-10 - R53.83) 05/01/2024 [...] R53.81) 05/08/2024 Other malaise (ICD-10 - R53.81) 05/29/2024 Other malaise (ICD-10 - R53.81) 03/27/2024 Other malaise (ICD-10 - R53.81) Plan Of Treatment Next Appt Details Provider Name:John LunaDorene Avina , 06/26/2024 08:15:00 AM, [address], [place] [place] [address], [place], [address], Medical (General) History Medical History History ICD Code Hyperlipidemia GERD
--- OUTSIDE RECORDS SUMMARY | 2024-06-14 09:52 | XMS_ITS | Clinical Summary ---
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 Gender Identity Not on file Sexual Orientation [...] or PCV21) 12/09/2021 12/09/2016, 12/01/2015 Covid-19 Vaccine (2023-2 5 season) 2023 11/16/2022, 01/22/2022, 10/13/2021, Additional history exists Influenza Vaccine (Season Ended) 2024 11/16/2022, 01/22/2022, 10/30/2020, Additional history exists Medical Devices Implanted Type Area Aircraft Powertrain Repairer Device Identifier Shelf Expiration Date Model / Serial / Lot Head Radial 12mm 22mm Explor Elbow Mdlr - [id number] Implanted:Qty: 1 on 07/15/2017 by Jerome Ramires MD at [facility] Left: [employer] 06/21/2027 [id number] / / [id number] Stem Radial 22mm 5mm Explor Elbow lr - [id number] Implanted:Qty: 1 on 07/15/2017 by Jerome Ramires MD at [facility] Left: [employer] 06/22/[id number] / / [id number] Insurance MEDICARE Advance Directives For more information, please contact: [phone] Documents on File Type Date Recorded Patient Band Straightener Expl anation ADVANCE DIRECTIVE 06/24/2017 8:09 PM ADVANCE DIRECTIVE 06/24/2017 Advance Di rective Checklist Care Teams Quality Assurance Monitor Relationship Specialty Start Date End Date Jeremy Oro MD [address] [facility] [address] [place] [address] PCP - General Family Medicine 05/11/17
--- OUTSIDE RECORDS SUMMARY | 2024-06-14 09:52 | XMS_ITS | Referral Summary ---
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 Gender Identity Not on file Sexual Orientation [...] on file Medical Devices Implanted Type Area Trademark Affixer Device Identifier Shelf Expiration Date Model / Serial / Lot Head Radial 12mm 22mm Explor Elbow Mdlr - [id number] Implanted:Qty: 1 on 07/15/2017 by Jerome Ramires MD at [facility] Left: [employer] 06/21/2027 [id number] / / [id number] Stem Radial 22mm 5mm Explor Elbow lr - [id number] Implanted:Qty: 1 on 07/15/2017 by Jerome Ramires MD at [facility] Left: [employer] 06/22/202260 / / [id number] Insurance MEDICARE [facility] MEDICARE ADVANTAGE Advance Directives For more information, please contact: [phone] Documents on File Type Date Recorded Patient Wood Handler Expl anation ADVANCE DIRECTIVE 06/24/2017 8:09 PM ADVANCE DIRECTIVE 06/24/2017 Advance Di rective Checklist Care Teams Hot Wort Settler Relationship Specialty Start Date End Date Jeremy Oro MD [address] [place] [address] PCP - General Family Medicine 05/11/17
--- OUTSIDE RECORDS SUMMARY | 2024-06-14 09:52 | XMS_ITS | Clinical Summary ---
Author Organization [facility] [employer] Address [address] [place] [address] Care Team Providers Care Transit Man Name Role Phone Josh Munson MD Unavailable Source Comments [facility] [employer],non-owned Affiliates and Associated Physician Practices is amultiple site organization consisting of ambulatory clinics and hospital sitesin [place], [place], [place] and [place]. This disclosure is being madepursuant to the Care Everywhere program and may not contain all information available regarding this patient. Last updated 17.[facility] [facility] Allergies No known active allergies Medications * Be aware that medications may not be up to date on this document. Alwaysverify current medications with the patient. hydrochlorothiazi de (HYDRODIURIL) 25 MG tablet Take 25 mg [...] 6 hours as needed. 1 Inhaler 3 2 Active fluticasone propionate (FLONASE) 50 MCG/ACT nasal spray [place] 2 Sprays into each nostril once daily. 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
--- OUTSIDE RECORDS SUMMARY | 2024-06-14 09:52 | XMS_ITS | Clinical Summary ---
Author Organization [facility] Address [address] [place] [address] Care Team Providers Care Anesthesiologist Physician Name Role Phone Jeremy Oro MD Primary Care Provider [phone] Allergies No known active allergies Medications traZODone [...] 1-dose 75+ series) 09/28/2027 Insurance Care Teams Anesthesiologist Physician Relationship Specialty Start Date End Date Jeremy Oro MD [address] [facility] [address] [place] [address] PCP - General Family Practice 05/14/18
--- OUTSIDE RECORDS SUMMARY | 2024-06-14 09:52 | XMS_ITS ---
Author Organization [facility] ([address]) Address [address] [place] [address] Care Team Providers Care Senior Software Test Engineer Name Role Phone John Avina [phone] REASON FOR VISIT [facility] Weight Loss, adequate appetite suppression lasting 4-5 days, no side effects noted. She vacationed last week and missed a shot., Desired weight loss: 30 lbs, +2.0 lbs since last visit, -6.1 lbs total, No history MTC or MEN2 or pancreatitis, Concerned about future DM and OA, Previouslyon Tirzepatide x 1 year, lost 40 lbs, [...] day Active Vital Signs Height 59.9 in 05/29/2024 Weight 156.0 lbs 05/29/2024 BMI 30.57 kg/m2 05/29/2024 Encounters Encounter Location Date Provider Diagnosis [facility] ([address]) [address] [place] [address] 05/29/2024 John Avina Chronic fatigue, unspecified R53.82 ; Abnormal weight gain R63.5 ; Other fatigue R53.83 and Other malaise R53.81 Assessments Encounter Date Diagnosis (ICD Code) Assessment Notes Treatment Notes Treatment Clinical Notes Section Notes 05/29/2024 Chronic fatigue, unspecified (ICD-10 - R53.82) 05/29/2024 Abnormal weight gain (ICD-10 - R63.5) 05/29/2024 Other fatigue (ICD-10 - R53.83) 05/29/2024 Other malaise (ICD-10 - R53.81) Plan Of Treatment Next Appt Details Follow Up: 1 Week, Reason: G LP-1 Agonist Administration Provider Name:John Avina , 06/26/2024 08:15:00 AM, [address], [address], [address], Procedure Notes * Category Sub-Category Detail Notes Quell: Weight Management tirzepatide Indication: weig ht loss Concentration: 10 mg/mL Volume Administered: 0.5 mL Dose Administered: 5 mg Increase dosing due to planned titration per protocol and desires more appetite suppression Route: SQ Location: Right abdomen Frequency: weekly Lot Number/Expiration: Medication Source: AH Nutrac eutical Compounding Adverse Reaction: None Progress Notes * INGRID AnastasiaBillOB:1950 ( 73 yo F)Acc No.[id number]:05/29/2024 Weight Loss Patient: Khadra ODEN Provider: Leticia Avina MD :1950 A ge:73 Y S ex:Female Date:05/29/2024 Address:[address] [place] [address] Subjective: * Chief Complaints: * 1 . [facility] Weight Loss, adequate appetite suppression lasting 4-5 days, no side effects noted. She vacationed last week and missed a shot.. 2. Desired weight loss: 30 lbs, +2.0 lbs since last visit, -6.1 lbs total. 3. No history MTC or [...] * Vitals: H t: 59.9 in, Wt: 156.0 lbs, BMI:30.57Index. Assessment: * Assessment: 1. A bnormal weight gain - R63.5 (Primary) 2 . C hronic fatigue, unspecified - R53.82 3 . O ther fatigue - R53.83 4 . O ther malaise - R53.81 Plan: * Treatment: * Procedures: Q uell: Weight Management: tirzepatide I ndication w eight loss C oncentration 1 0 mg/mL V olume Administered 0 .5 mL D ose Administered 5 mg Increase dosing due to planned titration per protocol and desires more appetite suppression R oute S Q L ocation R ight abdomen F requency w eekly L ot Number/Expiration 0 M edication Source A H Nutraceutical Compounding A dverse Reaction N one * Follow Up: 1 Week (Reason: GLP-1 Agonist Administration) * Billing Information: * Visit Code: * Procedure Codes: 74882 Quell - Weekly (tirzepatide) (0.5-5 mg) Tier 1. * Electronic signature of Patlux Avina MD, FAAAAI on 06/14/2024 at 09:51 AM CDT Sign off status: Pending * Provider: Leticia Avina MD Date: 0 05/29/2024 Generated for Sony tapia/Meghna/Ocitting on: 0 06/14/2024 [...]
--- OUTSIDE RECORDS SUMMARY | 2024-06-14 09:52 | XMS_ITS | Encounter Summary ---
Author Organization [facility] Address [address] [place] [place] [address] Care Team Providers Care Bag Adjuster Name Role Phone Josh Munson MD Unavailable Encounter Details Date Type Department Care Team (Late st Contact Info) Description 06/21/2023 Lab Requisition [facility] - DermPath Lab [address] [facility] [place] [id number] Sher Hickman MD [address] [facility] [address] [place] [address] Social History Tobacco Use Types Packs/Day Years Used Date Smoking Tobacco: Never Smokeless Tobacco: Never Alcohol Use Standard Drinks/Week Comments No 0 (1 standard drink = 0.6 oz pur e alcohol) Comments Unknown Sex and Gender Information Value Date Recorded Sex Assigned at Not on file 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
--- OUTSIDE RECORDS SUMMARY | 2024-06-14 09:52 | XMS_ITS | Encounter Summary ---
Author Organization [facility] Address [address] [place] [address] Care Team Providers Care Manager Electronic Name Role Phone Josh Munson MD Unavailable Encounter Details Date Type Department Care Team (Late st Contact Info) Description 06/21/2023 Lab Requisition [facility] - DermPath Lab [address] [facility] [place] [address] Sher Hickman MD [address] [facility] [address] [place] [address] Social History Tobacco Use Types Packs/Day Years Used Date Smoking Tobacco: Never Smokeless Tobacco: Never Alcohol Use Standard Drinks/Week Comments No 0 (1 standard drink = 0.6 oz pur e alcohol) Comments Unknown Sex and Gender Information Value Date Recorded Sex Assigned at Not on file 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 Gender Identity Not on file Sexual Orientation Not on file documented as of this encounter Plan of Treatment Not on file documented as of this encounter Procedures Procedure Name Priority Date/Time Associated Diagnosis Comments DERMATOPATHOLOGY Routine 06/18/2023 12:0 0 AM CDT documented in this encounter Results * DERMATOPATHOLOGY (06/18/2023 12:00 AM CDT) Case Report Dermatopathology Report Case: [id number] Authorizing Provider: Sher Hickman MD Collected: 06/18/2023 12:00 AM Ordering Location: [facility] - Received: 06/21/2023 11:47 AM DermPath Lab Pathologist: Viviana Mcguire MD Specimens: A) - Skin, Nasal bridge right of mid B) - Skin, abdomen right lower 5:04 PM T DERMATOPATHOLOGY LABORATORY Final Diagnosis Specimen A. SKIN, Nasal bridge right of mid: SQUAMOUS CELL CARCINOMA, ACANTHOLYTIC TYPE (C44.321) (see microscopic description) Specimen B. SKIN, abdomen right lower: LENTIGINOUS MELANOCYTIC NEVUS, COMPOUND TYPE, IRRITATED (D22.5) 5:04 PM T DERMATOPATHOLOGY LABORATORY Clinical History A: BCC. B: [...] measuring 8x6x1 mm. Jar 0. 5:04 PM CDT DERMATOPATHOLOGY LABORATORY Microscopic Description Specimen [...] were reviewed. (Compound Vinay's Nevus) 5:04 PM CDT DERMATOPATHOLOGY LABORATORY Disclaimer An external and internal positive and negative controls are appropriate for the histochemical, immunohistochemical and immunofluorescence stain(s) in this case (if any), except where stated explicitly. The performance characteristics of the stain(s) cited in this report were developed and its performance characteristic determined by the Dermatopathology Laboratory at [facility], directed by Dr. Garth Gonzalez. These tests need not be, and therefore are not, approved by the [place] Food and Drug Administration. The tests are used for clinical purposes. Billing Codes Specimen Charges Stain Charges 07852 25768 1 1 15621 62910 1 1 4 5:04 PM CDT DERMATOPATHOLOGY LABORATORY Embedded Images 5:04 PM CDT DERMATOPATHOLOGY LABORATORY Pathology/Cytology TISSUE SPECIMEN FROM SKIN / Unknown 06/18/2023 06/21/2023 11:47 AM CDT Miscellaneous samples (specimen) TISSUE SPECIMEN FROM SKIN / Unknown 06/18/2023 06/21/2023 11:47 AM CDT Sher Hickman MD LAB - PATHOLOGY/CYTOLOGY ORDERAB LES Final Result DERMATOPATHOLOGY LABORATORY [facility] - Department of Dermatology [facility] Medicine [address] [place] [address], [address] [phone] documented in this encounter Visit Diagnoses Not on filedocumented in this encounter Care Teams Manager Electronic Relationship Specialty Start Date End Date Josh Munson MD Pulmonary Disease 10/27/11 documented as of this encounter
--- OUTSIDE RECORDS SUMMARY | 2024-06-14 09:52 | XMS_ITS | CONTINUITY OF CARE DOCUMENT ---
Author Name dora john Address Unknown Organization [facility] Address [address] [place] [address] [address] [place] [address] Phone [phone] Care Team Providers Care Tumbler Dyeing Machine Operator Name Role Phone Chen HURST, Jorge Adams Unavailable [phone] KHADRA GAMBLE MD Unavailable KHADRA GAMBLE MD Unavailable [phone] INSURANCE PROVIDERS Payer name Policy type / Coverage type [place] [employer] party [place] PART B Medicare [id number]
--- OUTSIDE RECORDS SUMMARY | 2024-06-14 09:52 | XMS_ITS | Encounter Summary ---
Author Organization [facility] Address [address] [facility] [place] [address] Care Team Providers Care Granite Countertop Installer Name Role Phone Josh Munson MD Unavailable Encounter Details Date Type Department Care Team (Late st Contact Info) Description 07/19/2020 Lab Requisition [facility] DermPath Lab [address] [facility] [place] [phone] Sher Hickman MD [address] [facility] [address] [place] [address] Social History Tobacco Use Types Packs/Day Years Used Date Smoking Tobacco: Never Smokeless Tobacco: Never Alcohol Use Standard Drinks/Week Comments No 0 (1 standard drink = 0.6 oz pur e alcohol) Comments Unknown Sex and Gender Information Value Date Recorded Sex Assigned at Not on file 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 Gender Identity Not on file Sexual Orientation Not on file documented as of this encounter Plan of Treatment Not on file documented as of this encounter Procedures Procedure Name Priority Date/Time Associated Diagnosis Comments DERMATOPATHOLOGY Routine 07/17/2020 12:0 0 AM CDT documented in this encounter Results * DERMATOPATHOLOGY (07/17/2020 12:00 AM CDT) Case Report Dermatopathology Report Case: [id number] Authorizing Provider: Sher Hickman MD Collected: 07/17/2020 12:00 AM Ordering Location: [facility] DermPath Lab Received: 07/19/2020 10:23 AM Pathologist: [...] specimen consists of a shave biopsy measuring [id number]. Jar 0. 1:22 PM CDT DERMATOPATHOLOGY LABORATORY [...] characteristic determined by the Dermatopathology Laboratory at [facility], directed by Dr. Garth Gonzalez. These tests need not be, and therefore are not, approved by the [place] Food and Drug Administration. The tests are used for clinical purposes. Billing Codes Specimen Charges Stain Charges 92465 1 1:22 PM CDT DERMATOPATHOLOGY LABORATORY Embedded Images 1:22 PM CDT DERMATOPATHOLOGY LABORATORY Pathology/Cytolog y TISSUE SPECIMEN FROM SKIN / Unknown 07/17/2020 07/19/2020 10:23 AM CDT Sher Hickman MD LAB - PATHOLOGY/CYTOLOGY ORDERAB LES Final Result DERMATOPATHOLOGY LABORATORY [facility] - Department of Dermatology [facility] [facility], [address]rd Floor [address] [phone] documented in this encounter Visit Diagnoses Not on filedocumented in this encounter Care Teams Granite Countertop Installer Relationship Specialty Start Date End Date Josh Munson MD Pulmonary Disease 10/27/11 documented as of this encounter
== END 2024-06-14 09:05 | disposition home or self-care (01) ==
PROVIDERS: PCP Family Medicine; Visit Provider Family Medicine
DX: M25.562 Pain in left knee (principal)
CPT/HCPCS: 73560

== ENCOUNTER 2024-09-20 14:18 | Outpatient (CLI) | payer MEDICARE, SELFPAY ==
--- NOTE | ~2024-09-20 | MM_ITS ---
EXAMINATION: MM screening rosanna BI w judie HISTORY: Screening TECHNIQUE: Craniocaudal and mediolateral oblique 3-D tomosynthesis images were obtained and synthetic 2-D images were generated. CAD analysis was submitted and interpreted. COMPARISON: Comparison to multiple prior studies sequentially, with oldest reviewed study dated 11/23. BREAST PARENCHYMAL COMPOSITION: There are scattered areas of fibroglandular density. FINDINGS: There is no evidence of suspicious mass, calcification, or architectural distortion to sugg est malignancy in either breast. There has been no suspicious interval change. IMPRESSION: 1. No mammographic evidence of malignancy. 2. Recommend routine screening mammography in one year. BI-RADS Category 1: Negative Reviewed, dictated and finalized at location B.
--- OUTSIDE RECORDS SUMMARY | 2024-09-20 14:31 | XMS_ITS | Clinical Summary ---
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 Gender Identity Not on file Sexual Orientation [...] 10/13/2021, Additional history exists Influenza Vaccine (#1) 2024 , 01/22/2022, 10/30/2020, Additional history exists Medical Devices Implanted Type Area Outside Solar Sales Consultant Device Identifier Shelf Expiration Date Model / Serial / Lot Head Radial 12mm 22mm Explor Elbow Mdlr - [id number] Implanted:Qty: 1 on 07/15/2017 by Jerome Ramires MD at [facility] Left: [employer] 06/21/2027 [id number] / / [id number] Stem Radial 22mm 5mm Explor Elbow lr - [id number] Implanted:Qty: 1 on 07/15/2017 by Jerome Ramires MD at [facility] Left: [employer] 06/22/[id number] / / [id number] Insurance MEDICARE Advance Directives For more information, please contact: [phone] Documents on File Type Date Recorded Patient Keymodule Assembly Machine Tender Expl anation ADVANCE DIRECTIVE 06/24/2017 8:09 PM ADVANCE DIRECTIVE 06/24/2017 Advance Di rective Checklist Care Teams Retoucher Photoengraving Relationship Specialty Start Date End Date Jeremy Oro MD [address] [facility] [address] [place] [address] PCP - General Family Medicine 05/11/17
--- OUTSIDE RECORDS SUMMARY | 2024-09-20 14:31 | XMS_ITS | Clinical Summary ---
Author Organization [facility] Address [address] [place] [address] Care Team Providers Care Redrying Machine Operator Name Role Phone Jeremy Oro MD Primary Care Provider [phone] Allergies No known active allergies Medications traZODone [...] 12/13/2014 OSTEOPOROSIS SCREENING 2017 INFLUENZA VACCINE (#1) 2024 RSV VACCINE (60+ or ) (1 - 1-dose 75+ series) 09/28/2027 Insurance Care Teams Redrying Machine Operator Relationship Specialty Start Date End Date Jeremy Oro MD [address] [facility] [address] [place] [address] PCP - General Family Practice 05/14/18
--- OUTSIDE RECORDS SUMMARY | 2024-09-20 14:31 | XMS_ITS | Referral Summary ---
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 Left: [employer] 06/21/2027 [id number] / / [id number] Stem Radial 22mm 5mm Explor Elbow lr - [id number] Implanted:Qty: 1 on 07/15/2017 by Jerome Ramires MD at [facility] Left: [employer] 06/22/202260 / / [id number] Insurance MEDICARE [facility] MEDICARE ADVANTAGE Advance Directives For more information, please contact: [phone] Documents on File Type Date Recorded Patient Aerial Photographer Expl anation ADVANCE DIRECTIVE 06/24/2017 8:09 PM ADVANCE DIRECTIVE 06/24/2017 Advance Di rective Checklist Care Teams Machine Washer Relationship Specialty Start Date End Date Jeremy Oro MD [address] [place] [address] PCP - General Family Medicine 05/11/17
--- OUTSIDE RECORDS SUMMARY | 2024-09-20 14:32 | XMS_ITS | Clinical Summary ---
Author Organization [facility] Address [address] [facility] [place] [address] Care Team Providers Care Mobile Battery Technician Name Role Phone Josh Munson MD Unavailable Source Comments [facility],non-owned Affiliates and Associated Physician Practices is amultiple site organization consisting of ambulatory clinics and hospital sitesin [place], [place], [place] and [place]. This disclosure is being madepursuant to the Care Everywhere program and may not contain all information available regarding this patient. Last updated 17.[facility] Allergies No known active allergies Medications * [...] fluticasone propionate (FLONASE) 50 MCG/ACT nasal spray [place] 2 Sprays into each nostril once daily. [...] on file Legal Sex Female 6:31 AM LETTERER Gender Identity Not on file Sexual Orientation [...] season) 2023 DEPRESSION SCREENING 02/23/2024 INFLUENZA VACCINE (#1) 2024 Respiratory Syncytial Virus (RSV) Vaccine Pt: [...] age to complete this topic Insurance MEDICARE [facility] Address: [facility] [address] [place] [address] MEDICARE Care Teams Mobile Battery Technician Relationship Specialty Start Date End Date Josh Munson MD Pulmonary Disease 10/27/11
--- OUTSIDE RECORDS SUMMARY | 2024-09-20 14:32 | XMS_ITS | Encounter Summary ---
Author Organization [facility] Health Address [address] [facility] [place] [address] Care Team Providers Care Sweetbread Trimmer Name Role Phone Josh Munson MD Unavailable Encounter Details Date Type Department Care Team (Late st Contact Info) Description 06/21/2023 Lab Requisition [facility] - DermPath Lab [address] [facility], [place] [phone] Sher Hickman MD [address] [facility] [address] [place] [address] Social History Tobacco Use Types Packs/Day Years Used Date Smoking Tobacco: Never Smokeless Tobacco: Never Alcohol Use Standard Drinks/Week Comments No 0 (1 standard drink = 0.6 oz pur e alcohol) Comments Unknown Sex and Gender Information Value Date Recorded Sex Assigned at Not on file 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
--- OUTSIDE RECORDS SUMMARY | 2024-09-20 14:32 | XMS_ITS | Encounter Summary ---
Author Organization [facility] Health Address [address] [facility] [place] [address] Care Team Providers Care Churn Driller Helper Name Role Phone Josh Munson MD Unavailable Encounter Details Date Type Department Care Team (Late st Contact Info) Description 06/21/2023 Lab Requisition [facility] - DermPath Lab [address] [facility], [place] [phone] Sher Hickman MD [address] [facility] [address] [place] [address] Social History Tobacco Use Types Packs/Day Years Used Date Smoking Tobacco: Never Smokeless Tobacco: Never Alcohol Use Standard Drinks/Week Comments No 0 (1 standard drink = 0.6 oz pur e alcohol) Comments Unknown Sex and Gender Information Value Date Recorded Sex Assigned at Not on file 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 SALES ADVISOR Gender Identity Not on file Sexual Orientation Not on file documented as of this encounter Plan of Treatment Not on file documented as of this encounter Procedures Procedure Name Priority Date/Time Associated Diagnosis Comments DERMATOPATHOLOGY Routine 06/18/2023 12:0 0 AM CDT documented in this encounter Results * DERMATOPATHOLOGY (06/18/2023 12:00 AM CDT) Case Report Dermatopathology Report Case: [id number] Authorizing Provider: Sher Hickman MD Collected: 06/18/2023 12:00 AM Ordering Location: [facility] - Received: 06/21/2023 11:47 AM DermPath Lab Pathologist: Viviana Mcguire MD Specimens: A) - Skin, Nasal bridge right of mid B) - Skin, abdomen right lower 5:04 PM CDT DERMATOPATHOLOGY LABORATORY Final Diagnosis Specimen A. SKIN, Nasal bridge right of mid: SQUAMOUS CELL CARCINOMA, ACANTHOLYTIC TYPE (C44.321) (see microscopic description) Specimen B. SKIN, abdomen right lower: LENTIGINOUS MELANOCYTIC NEVUS, COMPOUND TYPE, IRRITATED (D22.5) 5:04 PM CDT DERMATOPATHOLOGY LABORATORY at 1704 CDT Clinical History A: BCC. B: NEVUS, SK, ATYPICAL,MELANOCYTI C LESION. 5:04 PM CDT DERMATOPATHOLOGY LABORATORY Gross Description Specimen [...] characteristic determined by the Dermatopathology Laboratory at [facility], directed by Dr. Garth Gonzalez. These tests need not be, and therefore are not, approved by the [place] Food and Drug Administration. The tests are used for clinical purposes. Billing Codes Specimen Charges Stain Charges 82690 96061 1 1 46854 07245 1 1 4 5:04 PM CDT DERMATOPATHOLOGY LABORATORY Embedded Images 5:04 PM CDT DERMATOPATHOLOGY LABORATORY Pathology/Cytology TISSUE SPECIMEN FROM SKIN / Unknown 06/18/2023 06/21/2023 11:47 AM CDT Miscellaneous samples (specimen) TISSUE SPECIMEN FROM SKIN / Unknown 06/18/2023 06/21/2023 11:47 AM CDT Sher Hickman MD LAB - PATHOLOGY/CYTOLOGY ORDERAB LES Final Result DERMATOPATHOLOGY LABORATORY [facility] - Department of Dermatology [facility] Medicine [address] [place] [address], [address] [phone] documented in this encounter Visit Diagnoses Not on filedocumented in this encounter Care Teams Churn Driller Helper Relationship Specialty Start Date End Date Josh Munson MD Pulmonary Disease 10/27/11 documented as of this encounter
--- OUTSIDE RECORDS SUMMARY | 2024-09-20 14:32 | XMS_ITS | Patient Health Record ---
Author Organization [email or web address] [place] ([address]) Address [address] [place] [address] Care Team Providers Care Palm And Back Forger Name Role Phone John Avina [phone] Reason For Referral No Information Medications Medication SIG (Take, Route, Frequency, Duration) Notes Start Date End Date Status Citalopram Hydrobromide 40 MG 0.5 tablet Orally Once a day Active Atorvastatin Calcium 10 MG 1 tablet Oral ly Once a day Active traZODone HCl 100 MG 1 tablet at bedtime Orally Once a day Active Montelukast Sodium 10 MG 1 tablet Orally Once a day Active Pulmicort 1 MG/2ML 1 mL Inhalation Twic e a day Active Pantoprazole Sodium 20 MG 1 tablet 1/2 t o 1 hour before morning meal Orally Once a day Active hydroCHLOROthiazide 25 MG 1 tablet in morning Orally Once a day Active Problems Problem Type SNOMED Code ICD Code Onset Dates Problem Status W/U Status Risk Notes Problem Chronic fatigue, unspecified (R53.82) Active confirmed Vital Signs Temperature 98.1 degrees Fahrenheit 03/27/2024 Respiratory Rate 18 /min 03/27/2024 Oximetry 96 % 03/27/2024 Blood pressure diastolic 79 mm Hg 03/27/2024 Height 59.9 in 08/24/2024 156.0 Blood pressure systolic 143 mm Hg 03/27/2024 Weight 156.0 lbs 08/24/2024 156.0 BMI 30.57 kg/m2 08/24/2024 156.0 Encounters Encounter Location Date Provider Diagnosis [facility] [email or web address] [place] ([address]) [address] [place] [address] 03/27/2024 John Avina Chronic fatigue, unspecified R53.82 ; Abnormal weight gain R63.5 ; Other fatigue R53.83 and Other malaise R53.81 [facility] [place] ([address]) [address] [place] [address] 04/03/2024 John Win Chronic fatigue, unspecified R53.82 ; Abnormal weight gain R63.5 ; Other fatigue R53.83 and Other malaise R53.81 [facility] [place] ([address]) [address] [place] [address] 04/10/2024 John Win Chronic fatigue, unspecified R53.82 ; Abnormal weight gain R63.5 ; Other fatigue R53.83 and Other malaise R53.81 [facility] ([address]) [address] [place] [address] 04/17/2024 John Win Chronic fatigue, unspecified R53.82 ; Abnormal weight gain R63.5 ; Other fatigue R53.83 and Other malaise R53.81 [facility] ([address]) [address] [place] [address] 04/24/2024 John Fabrice Chronic fatigue, unspecified R53.82 ; Abnormal weight gain R63.5 ; Other fatigue R53.83 and Other malaise R53.81 [facility] [place] ([address]) [address] [place] [address] 05/01/2024 John Win Chronic fatigue, unspecified R53.82 ; Abnormal weight gain R63.5 ; Other fatigue R53.83 and Other malaise R53.81 [facility] [place] ([address]) [address] [place] [address] 05/08/2024 John Win Chronic fatigue, unspecified R53.82 ; Abnormal weight gain R63.5 ; Other fatigue R53.83 and Other malaise R53.81 [facility] ([address]) [address] [place] [address] 05/29/2024 John Win Chronic fatigue, unspecified R53.82 ; Abnormal weight gain R63.5 ; Other fatigue R53.83 and Other malaise R53.81 [facility] ([address]) [address] [place] [address] 06/26/2024 Johnyohannes Avina Chronic fatigue, unspecified R53.82 ; Abnormal weight gain R63.5 ; Other fatigue R53.83 and Other malaise R53.81 [facility] ([address]) [address] [place] [address] 07/04/2024 John Fabrice Chronic fatigue, unspecified R53.82 ; Abnormal weight gain R63.5 ; Other fatigue R53.83 and Other malaise R53.81 [facility] ([address]) [address] [place] [address] 07/04/2024 John Avina [facility] ([address]) [address] [place] [address] 07/10/2024 Johnyohannes Avina Chronic fatigue, unspecified R53.82 ; Abnormal weight gain R63.5 ; Other fatigue R53.83 and Other malaise R53.81 [facility] ([address]) [address] [place] [address] 07/18/2024 Johnyohannes Avina Chronic fatigue, unspecified R53.82 ; Abnormal weight gain R63.5 ; Other fatigue R53.83 and Other malaise R53.81 [facility] ([address]) [address] [place] [address] 07/25/2024 John Fabrice Chronic fatigue, unspecified R53.82 ; Abnormal weight gain R63.5 ; Other fatigue R53.83 and Other malaise R53.81 [facility] ([address]) [address] [place] [address] 08/24/2024 John Fabrice Chronic fatigue, unspecified R53.82 ; Abnormal weight [...] 05/29/2024 Abnormal weight gain (ICD-10 - R63.5) 06/26/2024 Chronic fatigue, unspecified (ICD-10 - R53.82) 06/26/2024 Abnormal weight gain (ICD-10 - R63.5) 07/04/2024 Chronic fatigue, unspecified (ICD-10 - R53.82) 07/04/2024 Abnormal weight gain (ICD-10 - R63.5) 07/10/2024 Chronic fatigue, unspecified (ICD-10 - R53.82) 07/10/2024 Abnormal weight gain (ICD-10 - R63.5) 07/18/2024 Chronic fatigue, unspecified (ICD-10 - R53.82) 07/18/2024 Abnormal weight gain (ICD-10 - R63.5) 07/25/2024 Chronic fatigue, unspecified (ICD-10 - R53.82) 07/25/2024 Abnormal weight gain (ICD-10 - R63.5) 08/24/2024 Chronic fatigue, unspecified (ICD-10 - R53.82) 08/24/2024 Abnormal weight gain (ICD-10 - R63.5) 08/24/2024 Other fatigue (ICD-10 - R53.83) 07/25/2024 Other fatigue (ICD-10 - R53.83) 07/18/2024 Other fatigue (ICD-10 - R53.83) 07/10/2024 Other fatigue (ICD-10 - R53.83) 07/04/2024 Other fatigue (ICD-10 - R53.83) 06/26/2024 Other fatigue (ICD-10 - R53.83) 05/29/2024 Other fatigue (ICD-10 - R53.83) 05/08/2024 [...] R53.81) 05/29/2024 Other malaise (ICD-10 - R53.81) 06/26/2024 Other malaise (ICD-10 - R53.81) 07/04/2024 Other malaise (ICD-10 - R53.81) 07/10/2024 Other malaise (ICD-10 - R53.81) 07/18/2024 Other malaise (ICD-10 - R53.81) 07/25/2024 Other malaise (ICD-10 - R53.81) 08/24/2024 Other malaise (ICD-10 - R53.81) 03/27/2024 Other malaise (ICD-10 - R53.81) Plan Of Treatment Next Appt Details Provider Name:John HDorene Avina , 09/28/2024 08:15:00 AM, [address] [place] [address], [place], [address], Medical (General) History Medical History History ICD Code Hyperlipidemia GERD
--- OUTSIDE RECORDS SUMMARY | 2024-09-20 14:32 | XMS_ITS ---
Author Organization [facility] [employer] [facility] ([address]) Address [address] [place] [address] Care Team Providers Care Maintenance Supervisor Name Role Phone John Avina [phone] REASON FOR VISIT [facility] Weight Loss, switched from tirzeptatide to semaglutide 07/10/24, (previously on max dose of semaglutide), increased constipation, Desired weight loss: 30 lbs, +0.8 lbs since last visit, -5.9 lbs total, No history MTC or MEN2 or pancreatitis, Concerned about future DM and OA, Previouslyon semaglutide x 1 year, lost 40 lbs, last [...] e morning Orally Once a day Active traZODone HCl 100 MG 1 tablet at bedtime Orally Once a day Active Pulmicort 1 MG/2ML 1 mL Inhalation Twic e a day Active Vital Signs Height 59.9 in 08/24/2024 Weight 156.0 lbs 08/24/2024 BMI 30.57 kg/m2 08/24/2024 156.0 Encounters Encounter Location Date Provider Diagnosis [facility] ([address]) [address] [place] [address] 08/24/2024 John Avina Chronic fatigue, unspecified R53.82 ; Abnormal weight gain R63.5 ; Other fatigue R53.83 and Other malaise R53.81 Assessments Encounter Date Diagnosis (ICD Code) Assessment Notes Treatment Notes Treatment Clinical Notes Section Notes 08/24/2024 Chronic fatigue, unspecified (ICD-10 - R53.82) 08/24/2024 Abnormal weight gain (ICD-10 - R63.5) 08/24/2024 Other fatigue (ICD-10 - R53.83) 08/24/2024 Other malaise (ICD-10 - R53.81) Plan Of Treatment Next Appt Details Follow Up: 1 Week, Reason: G LP-1 Agonist Administration Provider Name:John Avina , 09/28/2024 08:15:00 AM, [address], [address], [address], Procedure Notes * Category Sub-Category Detail Notes [facility]: Weight Management semaglutide Indication: weig ht loss Concentration: 2.5 mg/mL Volume Administered: 0.4 mL Dose Administered: 1 mg Increase dosing due to lack of perceived benefit, Inadequate weight loss, Increased dosing for additional hunger suppression Route: SQ Frequency: every week Lot Number/Expiration: Medication Source: AH Nutrac eutical Compounding Adverse Reaction: None Progress Notes * INGRID AnastasiaBillOB:1950 ( 73 yo F)Acc No.[id number]:08/24/2024 Weight Loss Patient: Khadra ODEN Provider: Leticia Avina MD :1950 A ge:73 Y S ex:Female Date:08/24/2024 Address:[address] [place] [address] Subjective: * Chief Complaints: * 1 . [facility] Weight [facility], switched from tirzeptatide to semaglutide 07/10/24, (previously on max dose of semaglutide), increased constipation. 2. Desired weight loss: 30 lbs, +0.8 lbs since last visit, -5.9 lbs total. 3. No history MTC or MEN2 or pancreatitis. 4. Concerned about future DM and OA. 5. Previously on semaglutide x 1 year, lost 40 lbs, last dose 10/2023,. * HPI: * Aesthetics & Wellness: The risks, benefits & alternatives were discussed [...] Objective: * Vitals: H t: 59.9 in, Wt:156.0lbs, BMI:30.57Index. 156.0. Assessment: * Assessment: 1. A bnormal weight gain - R63.5 (Primary) 2 . C hronic fatigue, unspecified - R53.82 3 . O ther fatigue - R53.83 4 . O ther malaise - R53.81 Plan: * Treatment: * Procedures: Q uell: Weight Management: semaglutide I ndication w eight loss C oncentration 2 .5 mg/mL V olume Administered 0 .4 mL D ose Administered 1 mg Increase dosing due to lack of perceived benefit, Inadequate weight loss, Increased dosing for additional hunger suppression R oute S Q F requency e very week L ot Number/Expiration 0 M edication Source A H Nutraceutical Compounding A dverse Reaction N one * Follow Up: 1 Week (Reason: GLP-1 Agonist Administration) * Billing Information: * Visit Code: * Procedure Codes: QU006 Quell - Weekly (semaglutide) Tier 2 (1-2mg). * Electronic signature of Patr marylou Avina MD, FAAAAI on 09/20/2024 at 02:31 PM CDT Sign off status: Pending * Provider: Leticia Avina MD Date: 08/24/2024 Generated for Printi regina/Meghna/eTransmitting on: 09/20/2024 02:31 PM CDT History and Physical Notes * HPI (History of Present Illness) Category Sub-Category Detail Notes Category Not es *Aesthetics & Wellness The r isks, benefits & alternatives were [...]
--- OUTSIDE RECORDS SUMMARY | 2024-09-20 14:32 | XMS_ITS | Encounter Summary ---
Author Organization [facility] Health Address [address] [facility] [place] [place] [address] Care Team Providers Care Skating Rink Manager Name Role Phone Josh Munson MD Unavailable Encounter Details Date Type Department Care Team (Late st Contact Info) Description 07/19/2020 Lab Requisition [facility] Care DermPath Lab [address] [facility] [place] [phone] Sher Hickman MD [address] [facility] [address] [place] [address] Social History Tobacco Use Types Packs/Day Years Used Date Smoking Tobacco: Never Smokeless Tobacco: Never Alcohol Use Standard Drinks/Week Comments No 0 (1 standard drink = 0.6 oz pur e alcohol) Comments Unknown Sex and Gender Information Value Date Recorded Sex Assigned at Not on file 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 Gender Identity Not on file Sexual Orientation Not on file documented as of this encounter Plan of Treatment Not on file documented as of this encounter Procedures Procedure Name Priority Date/Time Associated Diagnosis Comments DERMATOPATHOLOGY Routine 07/17/2020 12:0 0 AM CDT documented in this encounter Results * DERMATOPATHOLOGY (07/17/2020 12:00 AM CDT) Case Report Dermatopathology Report Case: [id number] Authorizing Provider: Sher Hickman MD Collected: 07/17/2020 12:00 AM Ordering Location: [facility] DermPath Lab Received: 07/19/2020 10:23 AM Pathologist: Bryan Gonzalez MD Specimen: Skin, left ala nose 1:22 PM CDT DERMATOPATHOLOGY LABORATORY Final Diagnosis Specimen A. SKIN, left ala nose: SEBACEOUS HYPERPLASIA (L73.8) (see microscopic description) 1:22 PM CDT DERMATOPATHOLOGY LABORATORY at 1322 CDT Clinical History FP, nevus, R/O BCC. 1:22 PM CDT DERMATOPATHOLOGY LABORATORY Gross Description Specimen A: Received is one formalin filled container labeled with the patient's name and designated left ala nose. The specimen consists of a shave biopsy measuring [id number]. Jar 0. 1:22 PM CDT DERMATOPATHOLOGY LABORATORY [...] characteristic determined by the Dermatopathology Laboratory at [facility], directed by Dr. Garth Gonzalez. These tests need not be, and therefore are not, approved by the [place] Food and Drug Administration. The tests are used for clinical purposes. Billing Codes Specimen Charges Stain Charges 90093 1 1:22 PM CDT DERMATOPATHOLOGY LABORATORY Embedded Images 1:22 PM CDT DERMATOPATHOLOGY LABORATORY Pathology/Cytolog y TISSUE SPECIMEN FROM SKIN / Unknown 07/17/2020 07/19/2020 10:23 AM CDT Sher Hickman MD LAB - PATHOLOGY/CYTOLOGY ORDERAB LES Final Result DERMATOPATHOLOGY LABORATORY [facility] - Department of Dermatology [facility] [facility], 3rd Floor [address] [phone] documented in this encounter Visit Diagnoses Not on filedocumented in this encounter Care Teams Skating Rink Manager Relationship Specialty Start Date End Date Josh Munson MD Pulmonary Disease 10/27/11 documented as of this encounter
== END 2024-09-20 14:19 | disposition home or self-care (01) ==
LOC: ANHIMG 14:20
PROVIDERS: PCP Family Medicine; Visit Provider Family Medicine
DX: Z12.31 Encounter for screening mammogram for malignant neoplasm of breast (principal)
CPT/HCPCS: 77063; 77067